=== PATIENT | male | born 1945 | race Caucasian/White ===

== ENCOUNTER → 2018-07-03 07:06 | Outpatient (CLI) | payer MEDICARE, OTHER, SELFPAY ==
--- NOTE | 2018-07-03 09:32 | STRESSREP ---
Stress Test Report Exercise myocardial perfusion stress test. 73-year-old man with a history of previous myocardial infarction angioplasty and stenting of the diagonal vessel and the right coronary artery. Stress protocol: Resting EKG demonstrates normal sinus rhythm with a rate of 61 bpm normal intervals and noted. Resting blood pressure is 124/82 mmHg. The patient exercised according to regular Alexis protocol for total duration of 9 minutes the maximum heart rate attained was 126 bpm which was 85% of maximum predicted heart rate the maximum workload was 10.1 metabolic equivalents. Patient maintained sinus rhythm throughout the recording. At rest there were no ST or T-wave changes noted suggest ischemia peak exercise upsloping ST changes only were noted would not be the criteria for ischemia. Resting blood pressure is 124/82 with a peak blood pressure 146/66 centimeters of mercury. Myocardial perfusion protocol. 11.9 mCi of technetium 99m sestamibi was injected at rest. The patient exercised according to regular Alexis protocol for total duration of 9 minutes attaining 85% of maximum predicted heart rate workload of 10.1 metabolic equivalents. At peak exercise 34.2 mCi of technetium 99m sestamibi was injected stress images were obtained stress and rest images were reconstructed and compared in the short axis vertical long and horizontal long axis. Gated images were also obtained Perfusion SPECT analysis: Review of the stress images demonstrate normal uptake of tracer noted in all areas of myocardium. The resting images similarly demonstrate normal uptake of tracer noted in all wrists myocardium. No areas of reversibility are noted suggest ischemia no previous infarct is noted. Gated SPECT analysis: The gated ejection fraction is 76%. Conclusion: Normal exercise myocardial perfusion stress test at a high workload. No clinical angina noted. Excellent functional capacity.
== END ==
PROVIDERS: Family Provider Family Medicine; PCP Family Medicine; Visit Provider Internal Medicine Cardiovascular Disease
DX: I25.10 Atherosclerotic heart disease of native coronary artery without angina pectoris (principal); Z95.5 Presence of coronary angioplasty implant and graft
CPT/HCPCS: 78452; 93017; A9500; A4216

== ENCOUNTER → 2018-08-23 21:29 | Outpatient (CLI) | payer MEDICARE, OTHER, SELFPAY | PROVIDERS: Family Provider Family Medicine; PCP Family Medicine; Referring Provider Family Medicine; Visit Provider Family Medicine | DX: R30.0 Dysuria (principal) | CPT/HCPCS: 87077; 87086; 87088; 87186 ==

== ENCOUNTER → 2018-10-04 17:05 | Outpatient (CLI) | payer MEDICARE, OTHER, SELFPAY ==
--- OUTSIDE RECORDS SUMMARY | 2018-11-29 16:29 | XMS RPT_ITS ---
:1945 Author Organization [facility] Care Team Providers Name Role Phone Delphine Fowler Attending Unavailable Kat, [place] Attending Unavailable Sean Aguilar Referring Unavailable Kat, George Attending Unavailable Kat, George Referring Unavailable Sean Aguilar Primary Care Unavailable Kat, [place] Attending Unavailable Kat, [place] Referring Unavailable Sean Aguilar Attending Unavailable Sean Aguilar Primary Care Unavailable Sean Aguilar Referring Unavailable Sean Aguilar Attending Unavailable Sean Aguilar Referring Unavailable Sean Aguilar Primary Care Unavailable Sean Aguilar Attending Unavailable Sean Aguilar Primary Care Unavailable PROBLEMS PROBLEMS DATE TYPE CONDITION / CODE ATTENDING STATUS SOURCE 10/11/2018 Unknown E03.9 - Sean Aguilar Active [facility] Hypothyroidism, Community unspecified / Hospital E03.9(ICD-10) Repository 10/11/2018 Unknown Z12.5 - Encounter for Sean Aguilar Active [facility] screening for Community malignant neoplasm of Hospital prostate / Repository Z12.5(ICD-10) 10/04/2018 Unknown N39.0 - Urinary tract Sean Aguilar Active [facility] infection, site not Community specified / Hospital N39.0(ICD-10) Repository 08/26/2018 Unknown R30.0 - Dysuria / Sean Aguilar Active [facility] R30.0(ICD-10) [facility] Repository 06/28/2018 Unknown E78.5 - Kat, George Active [facility] Hyperlipidemia, Community unspecified / Hospital E78.5(ICD-10) Repository 06/28/2018 Unknown Z95.5 - Presence of Kat, George Active [facility] coronary angioplasty Community implant and graft / Hospital Z95.5(ICD-10) Repository 06/28/2018 Unknown I25.10 - Kat, George Active [facility] Atherosclerotic heart [facility] disease of [facility] coronary artery Repository without angina pectoris / I25.10(ICD-10) PROCEDURES PROCEDURES No Procedure Records FoundRESULTS RESULTS THYROID STIM HORMONE Collected: 10/11/2018 Status: F Source: [place] (TSH) 10:[address] [facility] REPOSITORY TYPE CODE TESTS RESULT OUT OF RANGE REFERENCE UNITS LAB L501.9520 0.358-3.74 uIU/mL Normal TSH 1.63 Performed By: #### L501.9520, L501.9910 #### [facility] [address] [place], [address] PSA,TOTAL - ANNUAL Collected: 10/11/2018 Status: F Source: [place] SCREEN 10:[address] [facility] REPOSITORY TYPE CODE TESTS RESULT OUT OF REFERENCE UNITS RANGE LAB L501.9910 0.00-4.00 ng/mL High PSA,TOT 9.73 SCREEN Result Comment: This test was performed using the TPSA assay method for the [employer] chemistry system. Values obtained with different assay methods cannot be used interchangably. When changing PSA assays in the course of monitoring a patient, additional sequential testing should be carried out to confirm baseline values. Performed By: #### L501.9520, L501.9910 #### [facility] [address] [facility] [address] [place], [place], [address] Observed: 10/04/2018 Status: F Source: [place] CULTURE, URINE 3:[address] [facility] REPOSITORY Urine Culture ORGANISM 1: Escherichia coli [place] Count >100,000 Escherichia coli: REACTION Amoxacillin/Clavulanic Acid $ 4 S Ampicillin $ >=32 R Ampicillin/Sulbactam $ 16 I Cefazolin $ <=4 S Cefepime $ <=1 S Ceftriaxone $ <=1 S Ciprofloxacin $ >=4 R ESBL - Ertapenim $$$ <=0.5 S Gentamicin $ <=1 S Imipenem *NF <=0.25 S Levofloxacin $ >=8 R Nitrofurantoin $ <=16 S Piperacillin/Tazobactam $$ <=4 S Tobramycin $ <=1 S Trimethoprim/Sulfametho $ >=320 R (NF) indicates non-formulary drug at [facility]. Approval by Infectious Disease Specialist required before non-formulary drugs may be ordered and/or dispensed. Performed By: #### M100.0650 #### [facility] [address] [facility] [place], [place], [address] Observed: 08/23/2018 Status: F Source: [place] CULTURE, URINE 9:[address] [facility] REPOSITORY Urine Culture ORGANISM 1: Escherichia coli [place] Count >100,000 Escherichia coli: REACTION Amoxacillin/Clavulanic Acid $ 4 S Ampicillin $ >=32 R Ampicillin/Sulbactam $ 16 I Cefazolin $ <=4 S Cefepime $ <=1 S Ceftriaxone $ <=1 S Ciprofloxacin $ >=4 R ESBL - Ertapenim $$$ <=0.5 S Gentamicin $ <=1 S Imipenem *NF <=0.25 S Levofloxacin $ >=8 R Nitrofurantoin $ <=16 S Piperacillin/Tazobactam $$ <=4 S Tobramycin $ <=1 S Trimethoprim/Sulfametho $ >=320 R (NF) indicates non-formulary drug at [facility]. Approval by Infectious Disease Specialist required before non-formulary drugs may be ordered and/or dispensed. Performed By: #### M100.0650 #### [facility] [address] [place], [address] STRESS REPORT Observed: 07/03/2018 Status: F Source: [place] 9:[address] [facility] REPOSITORY [facility] [address] [place] [address] MR#: [id number] Acct: [id number] Name: URSZULA SALINAS Rep #: [id number] : 1945 73 From: George Stephens MD Primary Care: Sean Aguilar MD Status: REG CLI Ordering Dr: Xiomara: Ashley Cooper Stress Test Report Exercise myocardial perfusion stress test. 73-year-old man with a history of previous myocardial infarction angioplasty and stenting of the diagonal vessel and the right coronary artery. Stress protocol: Resting EKG demonstrates normal sinus rhythm with a rate of 61 bpm normal intervals and noted. Resting blood pressure is 124/82 mmHg. The patient exercised according to regular Alexis protocol for total duration of 9 minutes the maximum heart rate attained was 126 bpm which was 85% of maximum predicted heart rate the maximum workload was 10.1 metabolic equivalents. Patient maintained sinus rhythm throughout the recording. At rest there were no ST or T-wave changes noted suggest ischemia peak exercise upsloping ST changes only were noted would not be the criteria for ischemia. Resting blood pressure is 124/82 with a peak blood pressure 146/66 centimeters of mercury. Myocardial perfusion protocol. 11.9 mCi of technetium 99m sestamibi was injected at rest. The patient exercised according to regular Alexis protocol for total duration of 9 minutes attaining 85% of maximum predicted heart rate workload of 10.1 metabolic equivalents. At peak exercise 34.2 mCi of technetium 99m sestamibi was injected stress images were obtained stress and rest images were reconstructed and compared in the short axis vertical long and horizontal long axis. Gated images were also obtained Perfusion SPECT analysis: Review of the stress images demonstrate normal uptake of tracer noted in all areas of myocardium. The resting images similarly demonstrate normal uptake of tracer noted in all wrists myocardium. No areas of reversibility are noted suggest ischemia no previous infarct is noted. Gated SPECT analysis: The gated ejection fraction is 76%. Conclusion: Normal exercise myocardial perfusion stress test at a high workload. No clinical angina noted. Excellent functional capacity. 07/03/18934 <Electronically signed by George Stephens MD> Date George Stephens MD CC: George Stephens MD; Sean Aguilar MD Date Dictated: 07/03/18931 Date Transcribed: 07/03/18931 Language Teacher: [place] Signed CARDIOLOGY VISIT Observed: 06/28/2018 Status: F Source: [place] REPORT 11:[address] [facility] REPOSITORY [facility] [address] [place] [address] OFFICE VISIT Date of Service: 06/28/18 MR#: [id number] Acct: [id number] Name: URSZULA SALINAS Rep #: [id number] : 1945 Provider: George Stephens MD Age/Sex: 73/M Location: [facility] Status: Signed HPI HPI Chief Complaint: Follow up Details: URSZULA SALINAS, is a 73 M who presents to the office today for a follow-up visit. He is a gentleman with a history of coronary artery disease status post Angio plasty and stenting with a drug-eluting stent to the diagonal vessel. The circumflex artery no significant disease, the right coronary artery had a 95% stenosis and also had a drug-eluting stent placed. He is done well he has been engaged in a structure house activity for which she is lost some weight. He has had no neck arm or jaw discomfort suggest angina no dizziness or diaphoresis no near syncope or syncope. His blood work recently noted that he was getting mildly hypothyroid. His physical exam today demonstrates clear lung herman regular rate and rhythm and no pedal edema his blood pressure is under excellent control. Intake Vital Signs06/28/18 Height 5 ft 5 in 06/28/18 Weight: 196 lb 06/28/18 Body Mass Index (BMI) 32.5 06/28/18 Blood Pressure 138/78 06/28/18 Blood Pressure Location Lt brachial Intake Visit Reasons: 6 M FU (9 mo we r/s from -22) Skeiner Required: No Accompanied by: none Is patient in pain?: No Allergies No Known Allergies Allergy (Verified 06/28/18 11:17) Medications atorvastatin 80 mg tablet 80 mg PO QHS #90 tab 03/11/18 [Rx Confirmed 06/28/18] clopidogrel 75 mg tablet 75 mg PO QDAY #90 tab 03/11/18 [Rx Confirmed 06/28/18] lisinopril 2.5 mg tablet 2.5 mg PO QDAY #90 tab 03/11/18 [Rx Confirmed 06/28/18] metoprolol succinate ER 25 mg tablet,extended release 24 hr 25 mg PO QDAY #90 tab 03/11/18 [Rx Confirmed 06/28/18] aspirin 81 mg tablet,delayed release 81 mg PO DAILY 06/28/18 [History Confirmed 06/28/18] levothyroxine 50 mcg tablet 50 mcg PO DAILY #90 tab 06/28/18 [Rx Confirmed 06/28/18] PFS Medical History Atherosclerosis of coronary artery of morongo heart without angina pectoris (Chronic) HLD (hyperlipidemia) (Chronic) Surgical History History of coronary artery stent placement (Resolved) History of herniorrhaphy (Resolved) Social History Smoking Status: Never smoker ROS Const Const: Negative for fatigue, weakness, night sweats, excessive sweating, frequent falls, headache(s) or daytime sleepiness Eyes Eyes: Negative for loss of peripheral vision, transient loss of vision, blind spots, double vision or blurry vision ENT ENT: Negative for headache(s), dizziness, balance problems, Nosebleed/epistaxis, tongue swelling or lip swelling Cardio Chest Pain: No Palpitations: No Edema: None Muscle aches with walking: None Resp Respiratory: Negative for SOB at rest, SOB orthopnea\SOB lying down, Cough, paroxysmal nocturnal dyspnea or SOB with activity GI GI: Negative nausea, vomiting, heartburn, black,tarry stools or bright, red blood in stools : Negative for hematuria Musc Musc: Negative for balance problems, muscle aches/ myalgia, muscle weakness or joint pain Skin Skin: Negative non-healing lesions, unusual bruising or rash Neuro Neuro: Negative for weakness, frequent falls, headache(s), double vision, dizziness, lightheadedness, orthostatic symptoms, blurry vision or lack of coordination Rubén Hematologic/Lymphatic: Negative for easy bruising or easy bleeding Endo Endo: Negative for fatigue, excessive sweating, cold intolerance, heat intolerance, increased thirst/drinking or hair loss Psych Psych: Negative for anxiety or depression Allergy Allergy/Immunology: Negative for throat swelling, Negative for tongue swelling, Negative for hives, Negative for rash, Negative for lip swelling Cardiology Exam Const Appearance: cooperative, healthy appearing, well developed, well groomed and no acute distress Nutritional Appearance: well nourished and average body habitus Orientation: alert, awake and oriented x3 Head Head: normal to inspection, normocephalic and atraumatic Ears: hearing grossly normal bilaterally and external ears normal Nose: external nose normal, nasal mucous membranes and turbinates normal, nares normal, septum normal, no nasal discharge Face and Sinus: face symmetric Mouth: oral mucosae normal, tongue normal, oropharynx normal and moist mucous membranes Teeth and gingiva: dentition normal Throat: posterior oropharynx normal, tonsils normal and uvula midline Eyes General: appearance normal, both eyes and all related structures Eyelids: eyelids normal Conjunctivae: conjunctivae normal Pupils: PERRL, normal by confrontation and accommodation normal EOM: EOM intact bilaterally Neck Neck: normal visual inspection, trachea midline and no JVD JVD: +5 Carotids: normal carotid upstroke and bounding pulses Chest Chest inspection: normal inspection of the chest, symmetric chest movement and normal respiratory effort Auscultation: Bilateral: Clear to Auscultation Cardio Palpation: normal PMI Rate: regular rate Rhythm: regular rhythm Heart sounds: S1 normal, S2 normal and normal, physiologic split S2; negative rub, gallop or murmur GI GI: normal to inspection, soft, no hepatosplenomegaly and bowel sounds present Neuro General: alert, awake, oriented x3, no focal sensory deficit, gait normal and moves all extremities Skin Skin: no rashes or lesions noted Extremities Pulses: Normal: Right Femoral Pulse, Left Femoral Pulse, Right Dorsalis Pedis Pulse, Left Dorsalis Pedis Pulse, Right Posterior Tibial Pulse, Left Posterior Tibial Pulse, Right Radial Pulse, Left Radial Pulse Lower Extremity Edema: None: Bilateral Musculoskel Musculoskeletal: No joint tenderness Psych Psychological: normal affect Assessment AND Plan 1. History of coronary artery stent placement Z95.5 QTM-XAJ-Sng-Distal RCA, POBA-Right PDA and GPZ-Agtrdt-Thru-D1 04/05/2015 Plan He is status post angioplasty and stenting of the mid right escamilla artery, plain old balloon angioplasty to the posterior descending artery, and drug-eluting stents to the ostium of the first diagonal vessel. He has been doing well thus far with no symptomatology but it to be prudent to obtain an exercise myocardial perfusion stress test to assess for any occult ischemia. Orders Orders: 2. HLD (hyperlipidemia) E78.5 Plan He does have a history of hyperlipidemia. He recently had a lipid profile obtained which demonstrated a total cholesterol 176, HDL of 55 and LDL of 88. His triglycerides were mildly elevated at 167. In addition he was noted to have a mildly elevated TSH. I have taken the liberty of starting him on 50 mcg of levothyroxine. Repeat lipid profile will be obtained in 3 months. Thank you for allowing me to participate in the care of your patient. Please don't hesitate to call if any issues arise Orders Orders: Plan Detail Other Medications New: Follow Up 6 Months (firer kiln) Coding Level of Care Code Off vis,est,level 3 Diagnoses History of coronary artery stent placement Z95.5 HLD (hyperlipidemia) E78.5 Coding Level of Care Code Off vis,est,level 3 Diagnoses History of coronary artery stent placement Z95.5 HLD (hyperlipidemia) E78.5 06/28/18 1145 <Electronically signed by George Stephens MD> Date George Stephens MD Cosigner Signature: Date (if applicable) CC: Sean Aguilar MD 12 LEAD EKG PERFORMED Observed: 06/28/2018 Status: F Source: [place] BY ROBIN 11:[address] [facility] REPOSITORY [facility] [address] [place] [address] 12 Lead EKG performed by ROBIN 08/1137 MR#: [id number] Acct: [id number] Name: URSZULA SALINAS Rep #: [id number] : 1945 73 From: George Stephens MD Attending Dr: George Stephens MD Status: DEP AMB Ordering Dr: George Stephens MD Date: 06/28/18 [place] [facility] [place] C [place] [facility] Lead EKG performed by [facility] Sinus Bradycardia WITHIN NORMAL LIMITS 07/01/18 0902 <Electronically signed by George Stephens MD> Date George Stephens MD CC: Sean Aguilar MD Date Dictated: 06/28/181137 Date Transcribed: 06/28/181137 Language Teacher: [place] Signed ALLERGIES ALLERGIES DATE TYPE / CODE NAME / CODE REACTION SEVERITY SOURCE 06/28/2018 Drug No Known Unknown [facility] Allergy/4160 Allergies/F00 Hospital 40047(SNOMED 4289283(RXNOR Repository CT) M) ENCOUNTERS ENCOUNTERS ADMIT/DISCHARGE ACCOUNT ADMITTING ENCOUNTER LOCATION SOURCE NUMBER CLASS 10/11/2018 [id number] Ambulatory [facility] ing:MFPLAB Repository 10/04/2018 [id number] Ambulatory [facility] ing:LABSPEC Repository 08/23/2018 [id number] Ambulatory [facility] ing:LABSPEC Repository 07/03/2018 [id number] Ambulatory [facility] ing:[facility]S Repository 07/03/2018 [id number] Ambulatory [facility]:W [facility] 0 [facility] Repository 06/28/2018/ [id number] Ambulatory BMSBuilding:B [facility] [address] [facility] Repository 06/24/2018 [id number] Ambulatory BMSBuilding:B [facility] [address] [facility] Repository PAYERS PAYERS ENCOUNTER GUARANTOR PAYER SUBSCRIBER SOURCE 10/11/2018 URSZULA Andino Primary URSZULA L [facility] [id number] Insurance:MEDICARE [place]APIRODOB: Community [place] A [facility]lic [id number] [address]Htq: Number: Repository [id number] (HP) Date:2018-10-11 10/11/2018 Secondary URSZULA L [facility] Insurance:AARPPolicy SHAPIRODOB: Community Number: [id number] Hospital [id number] Repository Date:2819-57-[address], [place] [address]NS: 10/11/2018 Tertiary NOT GIVENUNK [place] Insurance:SELF PAY [facility] Number: Effective Repository Date:2018-10-11 10/04/2018 URSZULA L Primary URS[facility]ULA L [facility] [id number] Insurance:MEDICARE SHAPIRODOB: Community [place], PART A [facility] [id number] [address]Xbh: Number: Repository [id number] (HP) Date:2018-10-04 10/04/2018 Secondary URSZULA L [place] Insurance:AARPPolicy SHAPIRODOB: Community Number: [id number] Hospital [id number] Repository Date:0356-25-83BX [facility] [address], [place] [address]CJ: 10/04/2018 Tertiary NOT GIVENUNK [facility] Insurance:SELF PAY [facility] Number: Effective Repository Date:2018-10-04 08/23/2018 URSZULA L Primary URSZULA L [facility] [id number] Insurance:MEDICARE SHAPIRODOB: Community [place], PART A [facility] [id number] [facility] [address]Qgb: Number: Repository [id number] (HP) Date:2018-08-23 08/23/2018 Secondary URSZULA L [place] Insurance:AARPPolicy SHAPIRODOB: Community Number: [id number] Hospital [id number] Repository Date:7392-74-74LS [facility] [address], [place] [address]MR: 08/23/2018 Tertiary NOT GIVENUNK [place] Insurance:SELF PAY [facility] Number: Effective Repository Date:2018-08-23 07/03/2018 URSZULA L Primary URSZULA Santos [id number] Insurance:MEDICARE SHAPIRODOB: Community [place] A olic [id number] [address]Vzx: Number: Repository [id number] (HP) Date:2018-06-28 07/03/2018 Secondary URSZULA L [place] Insurance:AARPPolicy SHAPIRODOB: Community Number: [id number] Hospital [id number] Repository Date:1761-52-45VQ [facility] [place], [place] [address]XS: 07/03/2018 Tertiary NOT GIVENUNK [place] Insurance:SELF PAY [facility] Number: Effective Repository Date:2018-06-28 07/03/2018 URSZULA L Primary URSZULA [place] [id number] Insurance:MEDICARE SHAPIRODOB: Community [place], PART A [facility] [id number] [facility] [address]Uiw: Number: Repository [id number] (HP) Date:2018-06-28 07/03/2018 Secondary URSZULA Andino [facility] Insurance:AARPPolicy SHAPIRODOB: Community Number: [id number] Hospital [id number] Repository Date:4193-00-65DU [facility] [place], [place] [address]YC: 07/03/2018 Tertiary NOT GIVENUNK [facility] Insurance:SELF PAY [facility] Number: Effective Repository Date:2018-07-03 06/28/2018 URSZULA L Primary URSZULA [place] [id number] Insurance:MEDICARE SHAPIRODOB: Community [place], PART A [facility] [id number] Hospital [place] [address]Hbi: Number: Repository [id number] (HP) Date:2017-10-15 06/28/2018 Secondary URSZULA L [facility] Insurance:AARPPolicy SHAPIRODOB: Community Number: [id number] Hospital [id number] Repository Date:2704-83-10[address], [place] [address]ZV: 06/28/2018 Tertiary NOT GIVENUNK [facility] Insurance:SELF PAY [facility] Number: Effective Repository Date:2018-03-19 06/24/2018 URSZULA Thu Primary NOT GIVENUNK [facility] [id number] Insurance:SELF PAY [facility] [address]Byn: Number: Effective Repository Date:2018-06-24 ()
== END ==
PROVIDERS: Family Provider Family Medicine; PCP Family Medicine; Referring Provider Family Medicine; Visit Provider Family Medicine
DX: N39.0 Urinary tract infection, site not specified (principal)
CPT/HCPCS: 87077; 87086; 87088; 87186

== ENCOUNTER → 2018-10-11 10:13 | Outpatient (CLI) | payer MEDICARE, OTHER, SELFPAY ==
[2018-06-28 11:16] VITALS: BMI 32.5
[2018-10-11 12:36] LABS: PSA,Total - Annual Screen 9.73 ng/mL (0.00-4.00); Thyroid Stim Hormone (TSH) 1.63 uIU/mL (0.358-3.74)
== END ==
PROVIDERS: Family Provider Family Medicine; PCP Family Medicine; Visit Provider Family Medicine
DX: E03.9 Hypothyroidism, unspecified (principal); Z12.5 Encounter for screening for malignant neoplasm of prostate
CPT/HCPCS: 36415; 84153; 84443; G0103

== ENCOUNTER → 2020-05-11 11:15 | Outpatient (CLI) | payer MEDICARE, OTHER, SELFPAY ==
[2020-05-11 10:30] VITALS: BMI 31.6
[2020-05-11 14:10] LABS: AST(SGOT) 24 U/L (15-37); Alanine Aminotransfer ALT/SGPT 28 U/L (16-61); Albumin, Serum 3.8 g/dL (3.2-5.0); Alkaline Phosphatase 66 U/L (45-117); Cholesterol 153 mg/dL (200); High Density Lipoprotein 53 mg/dL; PSA,Total- Diagnostic 8.67 ng/mL (0.0-4.0); Protein, Total 6.8 g/dL (6.4-8.2); Triglycerides 163 mg/dL; Very Low Density Lipoprotein 33 mg/dL (5-40)
== END ==
PROVIDERS: Referring Provider Internal Medicine Cardiovascular Disease; Visit Provider Internal Medicine Cardiovascular Disease
DX: I25.10 Atherosclerotic heart disease of native coronary artery without angina pectoris (principal); E78.5 Hyperlipidemia, unspecified
CPT/HCPCS: 36415; 80061; 80076; 84153

== ENCOUNTER → 2020-07-14 | Outpatient (CLI) | payer MEDICARE, OTHER, SELFPAY ==
[2020-05-11 10:30] VITALS: BMI 31.6
== END | disposition home or self-care (01) ==
PROVIDERS: Visit Provider Family Medicine
DX: N39.0 Urinary tract infection, site not specified (principal)
CPT/HCPCS: 87077; 87086; 87088; 87186

== ENCOUNTER → 2020-08-16 12:37 | Outpatient (CLI) | payer MEDICARE, OTHER, SELFPAY ==
[2020-05-11 10:30] VITALS: BMI 31.6
[2020-08-16 16:03] LABS: Anion Gap 5 (5-15); BUN 23 mg/dL (7-18); BUN/Creat Ratio 22.3 RATIO (10-20); Calcium,Total 9.3 mg/dL (8.5-10.1); Chloride 108 mmol/L (98-107); Creatinine, Serum 1.03 mg/dL (0.70-1.30); EST Glomerular Filtration Rate 75 mL/min (>60); Est Glom Filt Rate - Afr Amer 91 mL/min (>60); Glucose 96 mg/dL (74-106); Sodium Level 141 mmol/L (136-145)
== END ==
PROVIDERS: Referring Provider Nurse Practitioner Adult Health; Visit Provider Nurse Practitioner Adult Health
DX: N39.0 Urinary tract infection, site not specified (principal); R35.0 Frequency of micturition
CPT/HCPCS: 80048; 84153; 87077; 87086; 87088; 87186

== ENCOUNTER → 2020-09-10 08:32 | Outpatient (CLI) | payer MEDICARE, OTHER, SELFPAY ==
[2020-05-11 10:30] VITALS: BMI 31.6
[2020-09-10 10:34] LABS: Cholesterol 172 mg/dL (200); High Density Lipoprotein 55 mg/dL; PSA,Total- Diagnostic 8.18 ng/mL (0.0-4.0); Thyroid Stim Hormone (TSH) 2.78 uIU/mL (0.358-3.74); Triglycerides 176 mg/dL; Very Low Density Lipoprotein 35 mg/dL (5-40)
== END ==
PROVIDERS: PCP Family Medicine; Referring Provider Nurse Practitioner Adult Health; Visit Provider Nurse Practitioner Adult Health
DX: R97.20 Elevated prostate specific antigen [PSA] (principal); E03.9 Hypothyroidism, unspecified; E78.00 Pure hypercholesterolemia, unspecified
CPT/HCPCS: 36415; 80061; 84153; 84443

== ENCOUNTER → 2021-05-03 08:28 | Outpatient (CLI) | payer MEDICARE, OTHER, SELFPAY ==
[2021-04-06 11:07] VITALS: BMI 34.7
--- NOTE | 2021-05-03 08:41 | ECHOCS_ITS ---
Reason For Study: HTN Procedure This was a 2D Doppler, Color Flow transthoracic echocardiogram. The study was technically difficult. Contrast injection was performed. Exam performed in department. Left Ventricle Normal left ventricle. Mild concentric left ventricular hypertrophy. Left ventricular systolic function is normal. The estimated ejection fraction is 65 %. Stage 1 diastolic dysfunction. No regional wall motion abnormalities noted. Right Ventricle Normal RV size. Normal systolic function. Atria Normal left atrium. Normal right atrium. Mitral Valve Normal mitral valve. Trivial eccentric mitral valve insufficiency. Tricuspid Valve Normal tricuspid valve. Aortic Valve The aortic valve is not well visualized. Mild (1+) aortic valve insufficiency. Pulmonic Valve Normal pulmonic valve. Great Vessels Normal aortic root. The pulmonary artery is normal size. Normal inferior vena cava. Pericardium/Pleural No pericardial effusion. Medication 22 gauge I.V. with prn adaptor inserted into left arm. Diluted definity 2ml given slow IV push to enhance endocardial definition. MMode/2D Measurements & Calculations LVIDd: 3.9 cm IVSd: 1.2 cm LA dimension: 3.8 cm LVIDs: 2.3 cm LVPWd: 1.2 cm FS: 42.8 % LAV(MOD-bp): 39.7 ml LA A4 area: 18.2 cm2 LAV(MOD-bp) Indexed: 20.3 ml/m2 LAV(MOD-sp2): 31.7 ml LAV(MOD-sp4): 46.2 ml Time Measurements MV dec time: 0.26 sec Doppler Measurements & Calculations MV E max elieser: 69.4 cm/sec Lat Peak E' Elieser: 9.9 cm/sec Med Peak E' Elieser: 7.1 cm/sec MV A max elieser: 108.1 cm/sec E/E' lat: 7.0 E/E' med: 9.8 MV E/A: 0.64 MV V2 max: 107.5 cm/sec MV P1/2t max elieser: 65.8 cm/sec Ao V2 max: 154.4 cm/sec MV max P.6 mmHg MV P1/2t: 111.7 msec Ao max P.5 mmHg MV V2 mean: 41.8 cm/sec MV dec slope: 172.6 cm/sec2 MV mean P.92 mmHg MV V2 VTI: 34.3 cm MVA(P1/2t): 2.0 cm2 AI max elieser: 443.5 cm/sec LV V1 max: 147.7 cm/sec PA V2 max: 58.8 cm/sec AI max P.7 mmHg LV V1 max P.7 mmHg AI dec slope: 132.0 cm/sec2 AI P1/2t: 983.9 msec ECHO/Echo Complete W/ Contrast Interpretation Summary Normal left ventricle. Left ventricular systolic function is normal. The estimated ejection fraction is 65 %. Stage 1 diastolic dysfunction. Mild concentric left ventricular hypertrophy. Contrast injection was performed. Ordering Physician: George Stephens Referring Physician: Sean Herman Performed By: Jonah Nair RCS
[2021-05-03 10:05] LABS: AST(SGOT) 26 U/L (15-37); Alanine Aminotransfer ALT/SGPT 30 U/L (16-61); Alkaline Phosphatase 73 U/L (45-117); Cholesterol 154 mg/dL (200); Globulin 2.8 g/dL (2.2-4.2); High Density Lipoprotein 49 mg/dL; Protein, Total 6.8 g/dL (6.4-8.2); Triglycerides 144 mg/dL; Very Low Density Lipoprotein 29 mg/dL (5-40)
== END ==
PROVIDERS: PCP Family Medicine; Referring Provider Internal Medicine Cardiovascular Disease; Visit Provider Internal Medicine Cardiovascular Disease
DX: I25.10 Atherosclerotic heart disease of native coronary artery without angina pectoris (principal); I10 Essential (primary) hypertension; E78.5 Hyperlipidemia, unspecified; I25.2 Old myocardial infarction; Z95.5 Presence of coronary angioplasty implant and graft
CPT/HCPCS: 36415; 80061; 80076; 93306; Q9957; A4216; C8929; J3490

== ENCOUNTER → 2021-05-12 | Outpatient (CLI) | payer MEDICARE, OTHER, SELFPAY ==
[2021-04-06 11:07] VITALS: BMI 34.7
== END | disposition home or self-care (01) ==
LOC: LABSPEC 16:57
PROVIDERS: PCP Family Medicine; Referring Provider Nurse Practitioner Adult Health; Visit Provider Nurse Practitioner Adult Health
DX: N39.0 Urinary tract infection, site not specified (principal)
CPT/HCPCS: 87077; 87086; 87088; 87186

== ENCOUNTER → 2021-06-16 13:23 | Outpatient (CLI) | payer MEDICARE, OTHER, SELFPAY ==
[2021-04-06 11:07] VITALS: BMI 34.7
--- NOTE | 2021-06-16 13:27 | CT_ITS ---
STUDY: CT ABDOMEN AND PELVIS WITHOUT CONTRAST REASON FOR EXAM: Male, 76 years old. UTI RADIATION DOSAGE (If Supplied By Facility): CTDIvol = ( 18.75 ) mGy, DLP = ( 937.06 ) mGycm TECHNIQUE: Transaxial images were obtained from the dome of the diaphragm to the symphysis pubis without oral contrast, and without intravenous contrast. Sagittal and coronal images were reconstructed. Individualized dose optimization techniques were used for this CT. COMPARISON: None. FINDINGS: Mild degree of increased markings in the anterior aspect of the right lower lobe suggestive of scarring and/or atelectasis. Coronary artery calcification. Normal liver. Normal gallbladder and extrahepatic biliary system. Normal spleen. Normal pancreas. Normal bilateral adrenal glands. Normal right kidney. There is a 12.3 cm x 8.2 cm x 9.5 cm cyst in the upper and midportion of the left kidney. There is a small hiatal hernia. Normal small intestine. There are multiple colonic diverticula consistent with diverticulosis. The appendix is visualized and appears normal. There is diffuse atherosclerotic calcification of the abdominal aorta and its major visceral branches, without a demonstrated aneurysm. Normal inferior vena cava. Normal retroperitoneum. Normal urinary bladder. The prostate is enlarged. It measures 5.4 cm x 5.5 cm. This causes indentation at the bladder base. There are prostatic calcifications. Prior right inguinal hernia repair with mesh. There are diffuse degenerative changes of the visualized lumbar spine. Minimal anterior listhesis of L4 on L5 without spondylolysis. CT/Abdomen/Pelvis without Cont IMPRESSION: 12.3 cm x 8.2 cm x 9.5 cm left renal cyst. Prostatic enlargement with indentation at the bladder base. Electronically Signed: Taras Galeana MD at 19:52 EDT , Service support ,
== END ==
PROVIDERS: PCP Family Medicine; Referring Provider Nurse Practitioner Adult Health; Visit Provider Nurse Practitioner Adult Health
DX: N39.0 Urinary tract infection, site not specified (principal)
CPT/HCPCS: 74176

== ENCOUNTER → 2021-08-02 08:19 | Outpatient (CLI) | payer MEDICARE, OTHER, SELFPAY | PROVIDERS: Referring Provider Urology; Visit Provider Urology | DX: R97.20 Elevated prostate specific antigen [PSA] (principal) | CPT/HCPCS: 36415; 84153 ==

== ENCOUNTER → 2021-09-23 11:14 | Outpatient (CLI) | payer MEDICARE, OTHER, SELFPAY ==
[2021-09-23 13:40] LABS: AST(SGOT) 25 U/L (15-37); Alanine Aminotransfer ALT/SGPT 31 U/L (16-61); Albumin, Serum 3.6 g/dL (3.2-5.0); Alkaline Phosphatase 65 U/L (45-117); Bilirubin, Direct 0.19 mg/dL (0.00-0.30); Cholesterol 137 mg/dL (200); Globulin 3.1 g/dL (2.2-4.2); High Density Lipoprotein 50 mg/dL; Protein, Total 6.7 g/dL (6.4-8.2); Thyroid Stim Hormone (TSH) 0.92 uIU/mL (0.358-3.74); Triglycerides 104 mg/dL; Very Low Density Lipoprotein 21 mg/dL (5-40)
== END ==
PROVIDERS: Referring Provider Internal Medicine Cardiovascular Disease; Visit Provider Internal Medicine Cardiovascular Disease
DX: E78.5 Hyperlipidemia, unspecified (principal)
CPT/HCPCS: 36415; 80061; 80076; 84443

== ENCOUNTER → 2021-10-03 06:59 | Outpatient (CLI) | payer MEDICARE, OTHER, SELFPAY ==
--- NOTE | 2021-10-03 09:53 | STRESSREP ---
Stress Test Report Exercise myocardial perfusion stress test. 76-year-old man with a history of coronary artery disease. Medications: Aspirin, levothyroxine, atorvastatin, Plavix, losartan, metoprolol. Stress protocol: Resting EKG demonstrates sinus bradycardia with a rate of 59 bpm. Resting blood pressure is 120/82 mmHg. The patient exercised according to the regular Alexis protocol for total duration of 7 minutes. The patient completed 1 minute into stage III of the Alexis protocol. The maximum heart rate attained was 125 bpm which was 86% of max impact at heart rate the maximum workload was 10.1 metabolic equivalents. The patient maintained sinus rhythm throughout the recording with occasional premature ventricular complexes noted. At rest there were no ST or T wave changes noted to suggest ischemia. At peak exercise upsloping ST changes only were noted with did not meet the criteria for ischemia. No clinical angina was noted the test was terminated due to shortness of breath. The peak blood pressure was 170/80 mmHg with a rate-pressure product was 15,680. Myocardial perfusion protocol. 11.8 mCi of technetium 99m sestamibi was injected at rest. The patient exercised according to regular Alexis protocol for 7 minutes and at peak exercise 34.3 mCi of technetium 99m sestamibi was injected stress images were obtained stress and rest images were reconstructed and compared in the short axis vertical long and horizontal long axis. Gated images were also obtained. Perfusion SPECT analysis: Review of the stress images demonstrate normal uptake of tracer noted in all areas of the myocardium. There is mild diaphragmatic and GI attenuation artifact noted. The resting images demonstrate a similar pattern with mild diaphragmatic and GI attenuation artifact. No areas of reversibility are noted to suggest ischemia no previous infarct is noted. Gated SPECT analysis: The gated ejection fraction is 72%. Conclusion: Normal exercise myocardial perfusion stress test at a high workload. Good functional capacity. No ischemia or angina noted.
== END ==
PROVIDERS: Referring Provider Internal Medicine Cardiovascular Disease; Visit Provider Internal Medicine Cardiovascular Disease
DX: I25.10 Atherosclerotic heart disease of native coronary artery without angina pectoris (principal); Z95.5 Presence of coronary angioplasty implant and graft; Z87.440 Personal history of urinary (tract) infections; Z79.899 Other long term (current) drug therapy
CPT/HCPCS: 78452; 87086; 87088; 93017; A9500; A4216

== ENCOUNTER → 2022-05-03 | Outpatient (CLI) | payer MEDICARE, OTHER, SELFPAY ==
[2022-05-03 09:09] LABS: AST(SGOT) 20 U/L (15-37); Alanine Aminotransfer ALT/SGPT 25 U/L (16-61); Albumin, Serum 3.5 g/dL (3.2-5.0); Alkaline Phosphatase 77 U/L (45-117); Bilirubin, Direct 0.13 mg/dL (0.00-0.30); Cholesterol 154 mg/dL (200); Globulin 3.2 g/dL (2.2-4.2); High Density Lipoprotein 44 mg/dL; Protein, Total 6.7 g/dL (6.4-8.2); Triglycerides 195 mg/dL; Very Low Density Lipoprotein 39 mg/dL (5-40)
[2022-05-03 09:13] LABS: PSA,Total- Diagnostic 5.51 ng/mL (0.0-4.0)
== END | disposition home or self-care (01) ==
LOC: LAB 07:56
PROVIDERS: PCP Internal Medicine; Visit Provider Internal Medicine Cardiovascular Disease
DX: R97.20 Elevated prostate specific antigen [PSA] (principal); E78.00 Pure hypercholesterolemia, unspecified; E78.5 Hyperlipidemia, unspecified
CPT/HCPCS: 36415; 80061; 80076; 84153

== ENCOUNTER → 2022-10-02 | Outpatient (CLI) | payer MEDICARE, OTHER, SELFPAY ==
[2022-10-02 09:17] LABS: AST(SGOT) 18 U/L (15-37); Alanine Aminotransfer ALT/SGPT 25 U/L (16-61); Albumin, Serum 3.2 g/dL (3.2-5.0); Alkaline Phosphatase 68 U/L (45-117); Bilirubin, Direct 0.16 mg/dL (0.00-0.30); Cholesterol 150 mg/dL (200); Globulin 2.6 g/dL (2.2-4.2); High Density Lipoprotein 52 mg/dL; PSA,Total- Diagnostic 5.83 ng/mL (0.0-4.0); Protein, Total 5.8 g/dL (6.4-8.2); Triglycerides 177 mg/dL; Very Low Density Lipoprotein 35 mg/dL (5-40)
[2022-10-02 09:25] LABS: Free T3 1.9 pg/mL (2.18-3.98); T4 Free Direct 1.01 ng/dL (0.76-1.46); Thyroid Stim Hormone (TSH) 2.49 uIU/mL (0.358-3.74)
== END | disposition home or self-care (01) ==
LOC: LAB 08:04
PROVIDERS: PCP Internal Medicine; Referring Provider Internal Medicine Cardiovascular Disease; Visit Provider Internal Medicine Cardiovascular Disease
DX: E03.9 Hypothyroidism, unspecified (principal); R97.20 Elevated prostate specific antigen [PSA]; E78.00 Pure hypercholesterolemia, unspecified
CPT/HCPCS: 36415; 80061; 80076; 84153; 84439; 84443; 84481

== ENCOUNTER 2022-10-05 13:00 | Outpatient (RCR) | payer MEDICARE, OTHER, SELFPAY ==
--- NOTE | 2022-09-04 15:44 | HP.PTEVAL_ITS ---
Patient's Visit Information URSZULA PERERA is a 77 year old M referred to Physical Therapy by Dr. Andrew Simmons MD with a diagnosis of sp reverse arthroplasty. Date of Evaluation: 09/04/22 Physical Therapist: Vinicio Wells PT, GLORIA, SCS, CSCS - Visit Plan Frequency: 2x /Week Duration: 6 Weeks - Subjective Mr. Perera is a pleasant 77 yo who was referred to our care following a left reverse shoulder procedure on Aug 28. He states that he has had shoulder pain for about 5-6 years. His main hobby at this point is photography and he would love to be able to take photos in 6-8 weeks. He is scheduled to go to [facility]. on Oct 07 and a planned trip to [facility]. If possible he would like to continue his therapy in [facility]. - Pain Left Shoulder Pain Intensity (Out of 10): 2 Pain Intensity Range: 0, 5 Comment: Manages with Tylenol. - Objective Mr. Perera presents in a sling today his incision is healing well with no seepage or drainage. He does have quite a bit of swelling distally at his elbow, bicep and chest area. Today I was able to move him passively to 90 abduction, 120 flexion and 5 ext. rotation which was painful for him. 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 His sensation was intact over his deltoid. - Balance/Special Test Scores Quick DASH Score: 63.6350 - Goals Goal 1:: Yon and his janak return demo of HEP correctly. Goal Time Frame: 1 Week Goal 2:: Improve ROm by 10% Goal Time Frame: 2-4 Weeks Goal 3:: Begin strengthen when appropriate Goal Time Frame: 4-6 Weeks - Rehabilitation Potential Physical Therapy Diagnosis: same Rehabilitation Potential: Good - Anticipated Interventions Patient/Client Instruction: Educate patient on: Condition, Plan of Care For the Purpose of:: To decrease pain, To increase ROM, To assume or resume ADL's Therapeutic Exercise to Include: Strength training, Flexibilty training, Passive ROM For the Purpose of:: To decrease pain, To increase ROM, To assume or resume ADL's Manual Therapy Techniques to Include: Massage, Passive ROM, Soft tissue mobilization For the Purpose of:: To decrease pain, To increase ROM, To assume or resume ADL's TENS: Yes - Decrease pain For the Purpose of:: To decrease pain, To increase ROM, To assume or resume ADL's Thank you for the opportunity to evaluate your patient. For Medicare and Medicare HMO plans, please review the plan of care and approve it. It will need to be FAXED BACK to us at [phone] for Medicare purposes. For Medicare only, by signing this I certify the plan of care. Please let me know if there are questions or concerns regarding this plan of care. Physician Signature: Date:
== END 2022-10-05 19:00 | disposition home or self-care (01) ==
LOC: PT 13:00
PROVIDERS: PCP Internal Medicine; Referring Provider Orthopaedic Surgery; Visit Provider Orthopaedic Surgery
DX: M19.012 Primary osteoarthritis, left shoulder (principal); Z96.612 Presence of left artificial shoulder joint; E03.9 Hypothyroidism, unspecified; R97.20 Elevated prostate specific antigen [PSA]; E78.00 Pure hypercholesterolemia, unspecified
CPT/HCPCS: 36415; 80061; 80076; 84153; 84439; 84443; 84481; 97014; 97110; 97140; 97161; G0283

== ENCOUNTER → 2023-04-23 | Outpatient (CLI) | payer MEDICARE, OTHER, SELFPAY ==
[2023-04-23 09:14] LABS: PSA,Total - Annual Screen 5.31 ng/mL (0.00-4.00); T4 Free Direct 0.97 ng/dL (0.76-1.46); Thyroid Stim Hormone (TSH) 4.37 uIU/mL (0.358-3.74)
[2023-04-23 09:20] LABS: AST(SGOT) 24 U/L (15-37); Alanine Aminotransfer ALT/SGPT 27 U/L (16-61); Albumin, Serum 3.6 g/dL (3.2-5.0); Alkaline Phosphatase 70 U/L (45-117); Bilirubin, Direct 0.19 mg/dL (0.00-0.30); Cholesterol 128 mg/dL (200); Globulin 2.9 g/dL (2.2-4.2); High Density Lipoprotein 44 mg/dL; Protein, Total 6.5 g/dL (6.4-8.2); Triglycerides 195 mg/dL; Very Low Density Lipoprotein 39 mg/dL (5-40)
== END | disposition home or self-care (01) ==
PROVIDERS: Internal Medicine Cardiovascular Disease; PCP Internal Medicine; Referring Provider Internal Medicine; Visit Provider Internal Medicine
DX: Z12.5 Encounter for screening for malignant neoplasm of prostate (principal); E03.9 Hypothyroidism, unspecified; E78.00 Pure hypercholesterolemia, unspecified
CPT/HCPCS: 80061; 80076; 84153; 84439; 84443; 84481; G0103

== ENCOUNTER 2023-05-02 15:30 | Emergency (ER) | payer MEDICARE, OTHER, SELFPAY ==
[2023-05-02 15:32] VITALS: BP 181/92; PULSE 59; RESP 20; TEMP 36.6; O2SAT 100; BMI 37.0
--- NOTE | 2023-05-02 15:40 | VDLE_ITS ---
Reason For Study: Right leg swelling RIGHT GSV is normal. CFV is compressible, spontaneous, phasic, competent and demonstrates normal augmentation. FV is compressible, spontaneous, phasic, competent and demonstrates normal augmentation. POP V is compressible, spontaneous, phasic, competent and demonstrates normal augmentation. T/P Trunk is compressible. PTV is compressible. RT PerV is compressible. Nonvascularized structure noted in the right mid thigh muscle. Procedure This is a venous duplex using B-mode, color flow and spectral Doppler. Exam performed portable in ED. A preliminary report was called and/or faxed to Dr. Fernandes. VL/Venous Duplex US, Unilateral Interpretation Summary Deep veins of the right lower extremity are patent and compressible segmentally . There is no evidence of right lower extremity deep vein thrombosis. The right great [place]hen[place] us vein appears patent and compressible segmentally. Nonvascularized structure noted in the right mid thigh muscle. Ordering Physician: Po Fernandes Referring Physician: Marcy Lloyd M.D. Performed By: Clementina Bolton RVT
--- NOTE | 2023-05-02 15:41 | ED.VIS.LOWEX ---
HPI History of Present Illness Chief Complaint: Lower Extremity Injury Detail of Chief Complaint: Atraumatic right leg pain with swelling and now bruising Informant: patient and PCP Occured/Mechanism Comment: Last patient awoke to use the restroom. He developed pain in his right groin on the inside. The next day he noticed swelling of his thigh and leg. This past weekend he said he needed the area to see if he could work out the swelling and pain. He is on Plavix. He is on Plavix because he had 4 stents placed 9 years ago. Onset/Context/Timing Onset: Days Context: Sudden Onset Timing: Continuous Quality of Pain: Dull and Aching Location: Inner right thigh and right leg posteriorly Current Severity: Mild Maximum Severity: Moderate Worsened by: Nothing specific Relieved by: Nothing Associated Symptoms Associated Symptoms: Positive for - (Bruising after deep massage to the right thigh); Negative for Parasthesia, Weakness or Loss of Funtion Narrative Narrative: Patient is a 77-year-old male with history of coronary disease, essential hypertension, hyperlipidemia, hypothyroidism and obesity who was sent to the emergency room for evaluation of DVT right lower extremity. He denies prior history of DVT or PE. He has no risk factors. He denies chest pain, shortness of breath or dyspnea on exertion. He denies black or maroon-colored stool. He denies hematuria. He denies bleeding of his gums. He did does endorse bruising easily. Tetanus Immunization: Unknown Prior similar symptoms: No Recent Illness/Hospitalization: No PFSH PFSH Medical History Arthritis Atherosclerosis of coronary artery of [place] heart without angina pectoris Essential hypertension Fracture of ribs, two History of non-ST elevation myocardial infarction (NSTEMI) (04/05/15) History of perforated ear drum HLD (hyperlipidemia) Hypothyroidism Obesity Recurrent UTI Seasonal allergies Home Medications aspirin 81 mg tablet,delayed release (Adult Low Dose Aspirin) 81 mg PO DAILY 06/28/18 [History Last Taken Unknown] atorvastatin 80 mg tablet 80 mg PO QHS #90 tabs 10/05/22 [Rx Last Taken Unknown] clopidogrel 75 mg tablet 75 mg PO DAILY #90 tabs 10/05/22 [Rx Last Taken Unknown] diphenhydramine 25 mg-acetaminophen 500 mg tablet (Tylenol PM Extra Strength) 2 tab PO QHS PRN 10/05/22 [History Last Taken Unknown] losartan 100 mg tablet 100 mg PO DAILY #90 tabs 10/05/22 [Rx Last Taken Unknown] metoprolol succinate 25 mg tablet,extended release 24 hr 25 mg PO DAILY #90 tabs 10/05/22 [Rx Last Taken Unknown] tamsulosin 0.4 mg capsule 0.4 mg PO DAILY #90 caps 10/05/22 [Rx Last Taken Unknown] levothyroxine 75 mcg tablet 75 mcg PO DAILY Insurance does not cover capsules, only tablets #90 tabs 04/23/23 [Rx Last Taken Unknown] Allergy/AdvReac Type Severity Reaction Status Date / Time Seasonal Allergies: Uncoded Allergy congestion Verified 05/02/23 15:31 Family History Father Asthma Mother Cancer Grandmother Diabetes Grandfather CVA (cerebral vascular accident) Surgical History History of coronary artery stent placement (04/05/15) History of herniorrhaphy 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) Social History Smoking Status: Never smoker alcohol intake: current alcohol intake frequency: a few times a week Alcohol type: wine substance use type: does not use what type of physical activity do you participate in: aerobics and weight training frequency: 3-4 times per week ROS ROS ED Constitutional Constitutional ED: Denies chills, fever(s) or sweats Cardiovascular Cardiovascular: Denies chest pain, palpitations or racing heartbeat Respiratory/Chest Respiratory/Chest: Denies cough, dyspnea or dyspnea on exertion Gastrointestinal Gastrointestinal: Denies nausea or vomiting Genitourinary Genitourinary ED: Denies hematuria Musculoskeletal Musculoskeletal: Reports other Details: Right lower extremity pain and bruising Psychiatric Psychiatric: Denies anxiety or depression Hematologic/Lymphatic Hematologic/Lymphatic: Reports easy bruising EXAM Physical Exam Const Vital Signs: 05/02/23 15:32 Temperature 97.8 F Temperature Source Temporal Pulse Rate 59 L Respiratory Rate 20 H Blood Pressure 181/92 H Blood Pressure Mean 121 Pulse Ox 100 Oxygen Delivery Method Room Air Positive well nourished, well developed and obese General Appearance ED: well developed and NAD Nutritional Appearance: obese HEENT Reports moist mucous membranes normocephalic and atraumatic Eyes PERRL Eyes Narrative: Extra muscles are intact. Sclera is anicteric. Conjunctive is pink. Neck full ROM and supple Chest Wall inspection of chest normal and palpation of chest normal Resp normal respiratory effort, no retractions and clear to auscultation bilaterally Cardio regular rate, regular rhythm, S1 normal heart sound, S2 normal heart sound and no murmurs GI non-tender, non-distended and no masses Back/Spine no CVA tenderness Thoracic Spine / Upper Back: Negative for thoracic spinal tenderness Lumbar Spine / Lower Back: Negative for lumbar spinal tenderness Neuro oriented x3, CN's II-XII intact bilaterally, moves all extremities and no sensory deficits noted Sensorium / Orientation: alert Motor Exam: strength 5/5 throughout Psych mental status grossly normal Skin No no wounds Skin Narrative: Bruising medial right thigh due to deep massage. MDM MDM MDM Narrative Medical decision making narrative: With history of atraumatic right thigh and leg pain and swelling need to evaluate for deep venous thrombosis. Patient's bruising is due to the deep massage and the fact that he is on Plavix. Will obtain venous duplex study. Will obtain CBC to assess H&H and platelet count since his right thigh is significant large and 1 can lose 3 to 4 units of blood with only minimal swelling. History & Record Review Additional record(s) reviewed:: Prior labs (Patient had recent electrolyte panel which was unremarkable. This will not be repeated. Has not had a recent CBC.) Lab Data Attestation: I reviewed the patient's lab results. Lab results narrative: H&H is normal. Platelet count is normal. Labs: Laboratory Results - last 24 hr 05/02/23 16:00 WBC 7.8 RBC 4.24 L Hgb 13.0 Hct 39.9 L MCV 94.1 H MCH 30.7 MCHC 32.6 RDW Std Deviation 42.9 RDW Coeff of Sugar 12.5 Plt Count 216 MPV 8.9 Management Discussion w/another healthcare provider: Program Associate Treatment and Re-Evaluation Narrative: Venous duplex study revealed ruptured muscle with hematoma. There is also subcutaneous blood noted. Spoke with Dr. Warner regarding holding his Plavix. He is to hold it for the next 7 days. 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 Instructions: ED Groin Strain, ED Hematoma Prescriptions: No Action aspirin [Adult Low Dose Aspirin] 81 mg tablet,delayed release (DR/EC) 81 mg PO DAILY diphenhydramine-acetaminophen [Tylenol PM Extra Strength] 25-500 mg tablet 2 tab PO QHS PRN atorvastatin 80 mg tablet 80 mg PO QHS Qty: 90 3RF clopidogrel 75 mg tablet 75 mg PO DAILY Qty: 90 3RF losartan 100 mg tablet 100 mg PO DAILY Qty: 90 3RF metoprolol succinate 25 mg tablet extended release 24 hr 25 mg PO DAILY Qty: 90 3RF tamsulosin 0.4 mg capsule 0.4 mg PO DAILY Qty: 90 3RF levothyroxine 75 mcg tablet 75 mcg PO DAILY Qty: 90 3RF Primary Care Provider: Marcy Lloyd Referrals: Marcy Lloyd MD [Primary Care Provider] - 1 Week Activity Restrictions/Additional Instructions: 1. Do not take your Plavix for the next week. 2. Alternate ice and heat to your right thigh for the next 3 to 5 days Disposition Disposition: Home, Self Care
[2023-05-02 16:23] LABS: Hematocrit 39.9 % (40-54); Mean Corp Hgb Conc 32.6 g/dL (32-36); Mean Corpuscular Hgb 30.7 pg (27.0-32.0); Mean Corpuscular Volume 94.1 fL (80-94); Mean Platelet Vol. 8.9 fl (6.2-12.0); Platelet Count 216 K/mm3 (150-450); RBC Distribution Width CV 12.5 % (11.6-14.6); RBC Distribution Width SD 42.9 fl (35.1-43.9); Red Blood Count 4.24 M/mm3 (4.6-6.2); White Blood Count 7.8 K/mm3 (4.4-11.0)
== END 2023-05-02 16:35 | disposition home or self-care (01) ==
PROVIDERS: Emergency Provider Emergency Medicine; PCP Internal Medicine; Visit Provider Emergency Medicine
DX: S76.011A Strain of muscle, fascia and tendon of right hip, initial encounter (principal); I25.10 Atherosclerotic heart disease of native coronary artery without angina pectoris; Z79.02 Long term (current) use of antithrombotics/antiplatelets; E78.5 Hyperlipidemia, unspecified; M79.89 Other specified soft tissue disorders; E66.9 Obesity, unspecified; I10 Essential (primary) hypertension; Z95.5 Presence of coronary angioplasty implant and graft; X58.XXXA Exposure to other specified factors, initial encounter
CPT/HCPCS: 85027; 93971; 99282

== ENCOUNTER 2023-05-07 10:47 | Emergency (ER) | payer MEDICARE, OTHER, SELFPAY ==
[2023-05-07 10:48] VITALS: BP 144/82; PULSE 53; RESP 16; TEMP 36.6; O2SAT 100; BMI 36.2
--- NOTE | 2023-05-07 11:09 | ED.VIS.LOWEX ---
HPI History of Present Illness HPI Narrative: Left thigh discomfort a.m. bruising and swelling to his left lower leg. Chief Complaint: Lower Extremity Injury Informant: patient Occured/Mechanism Mechanism/Context: Yes injury Onset/Context/Timing Onset: Days Context: Gradual Onset Timing: Continuous Quality of Pain: Dull Current Severity: Mild Maximum Severity: Mild Associated Symptoms Associated Symptoms: Negative for Parasthesia, Weakness or Loss of Funtion Narrative Narrative: 77-year-old male history of CAD, [place], stent, hypertension on Plavix and aspirin. Was seen in the emergency department about 5 days ago. Had discomfort and swelling in his right medial thigh at that time was diagnosed with a ruptured muscle with hematoma on ultrasound. There was no DVT. He was told at that time to hold his Plavix. He denies any injury or trauma said the bruising is gotten a little worse any has some mild swelling in his right lower leg. His physical therapist wanted to have this evaluated. Again he had a ultrasound less than a week ago showing no DVT and a ruptured muscle with a hematoma. Prior similar symptoms: Yes Recent Illness/Hospitalization: No PFSH PFS Medical History Arthritis Atherosclerosis of coronary artery of [place] heart without angina pectoris Essential hypertension Fracture of ribs, two History of non-ST elevation myocardial infarction (NSTEMI) (04/05/15) History of perforated ear drum HLD (hyperlipidemia) Hypothyroidism Obesity Recurrent UTI Seasonal allergies Home Medications aspirin 81 mg tablet,delayed release (Adult Low Dose Aspirin) 81 mg PO DAILY 06/28/18 [History Last Taken Unknown] atorvastatin 80 mg tablet 80 mg PO QHS #90 tabs 10/05/22 [Rx Last Taken Unknown] clopidogrel 75 mg tablet 75 mg PO DAILY #90 tabs 10/05/22 [Rx Last Taken Unknown] diphenhydramine 25 mg-acetaminophen 500 mg tablet (Tylenol PM Extra Strength) 2 tab PO QHS PRN 10/05/22 [History Last Taken Unknown] losartan 100 mg tablet 100 mg PO DAILY #90 tabs 10/05/22 [Rx Last Taken Unknown] metoprolol succinate 25 mg tablet,extended release 24 hr 25 mg PO DAILY #90 tabs 10/05/22 [Rx Last Taken Unknown] tamsulosin 0.4 mg capsule 0.4 mg PO DAILY #90 caps 10/05/22 [Rx Last Taken Unknown] levothyroxine 75 mcg tablet 75 mcg PO DAILY Insurance does not cover capsules, only tablets #90 tabs 04/23/23 [Rx Last Taken Unknown] Allergy/AdvReac Type Severity Reaction Status Date / Time Seasonal Allergies: Uncoded Allergy congestion Verified 05/07/23 10:49 Family History Father Asthma Mother Cancer Grandmother Diabetes Grandfather CVA (cerebral vascular accident) Surgical History History of coronary artery stent placement (04/05/15) History of herniorrhaphy 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 Review of Systems ROS Unobtainable: Denies due to encephalopathy Constitutional Constitutional ED: Denies chills Eyes Eyes: Denies blurry vision ENT ENT ED: Denies ear pain Cardiovascular Cardiovascular: Denies chest pain Respiratory/Chest Respiratory/Chest: Denies cough Gastrointestinal Gastrointestinal: Denies abdominal pain Genitourinary Genitourinary ED: Denies dysuria Musculoskeletal Musculoskeletal: Denies arthralgias Integumentary Denies abscess Neurologic Neurologic: Denies headache(s) Psychiatric Psychiatric: Denies anxiety Endocrine Endocrinology: Denies polydipsia Hematologic/Lymphatic Hematologic/Lymphatic: Denies easy bleeding or easy bruising Allergic/Immunologic Allergic/Immunologic ED: Denies mouth swelling or tongue swelling EXAM Physical Exam Narrative Exam Narrative: Well-appearing 77-year-old male no acute distress. Vital signs stable afebrile. No distress. HEENT exam unremarkable. Lungs are clear. Heart regular rhythm no murmur. Chest wall nontender. Abdomen soft nontender. Moving all 4 extremities. Neurovascularly intact. His right medial thigh and hamstring there is bruising. Small amount of edema. Also on his right medial calf. There is no calf pain or tenderness. Right foot is neurovascular intact. This is consistent with a previously diagnosed torn muscle in his thigh with subcu bleeding and hematoma. Const Vital Signs: 05/07/23 10:48 Temperature 97.9 F Temperature Source Temporal Pulse Rate 53 L Respiratory Rate 16 Blood Pressure 144/82 H Blood Pressure Mean 102 Pulse Ox 100 Oxygen Delivery Method Room Air Positive well nourished and well developed; Negative for obese, cachectic, contractures or unkempt General Appearance ED: well developed and NAD; Negative for unkempt, cachectic or contractures Nutritional Appearance: Negative for cachectic or obese HEENT Reports moist mucous membranes normocephalic and atraumatic; Negative for trauma or tenderness Eyes PERRL General Eye ED: Negative for other Neck full ROM and supple Thyroid: Negative for tender Lymph Lymphatic: Negative for other Chest Wall inspection of chest normal and palpation of chest normal Chest: Negative for other Resp normal respiratory effort, no retractions and clear to auscultation bilaterally Effort and Inspection: Negative for pain with movement Auscultation: Negative for rales, rhonchi or wheezes Cardio regular rate, regular rhythm, S1 normal heart sound, S2 normal heart sound and no murmurs Rate: Negative for bradycardia or tachycardic Rhythm: Negative for abnormal rhythm Bruits: Negative for other GI non-tender, non-distended and no masses Inspection: Negative for abdominal distention Auscultation: normoactive bowel sounds Palpation: soft; Negative for tender, guarding, rebound tenderness present or other Bladder / Kidney Exam: No other Back/Spine no CVA tenderness General Back: Negative for CVA tenderness or swelling Cervical Spine: Negative for cervical spine tenderness Thoracic Spine / Upper Back: Negative for thoracic spinal tenderness Lumbar Spine / Lower Back: Negative for lumbar spinal tenderness Extremity full ROM; Negative for normal to inspection Extremity Narrative: Right thigh bruising. Small edema. Calf nontender. Minimal edema. Right foot neurovascular intact. Normal range of motion. No cellulitis. Normal strength and sensation. No compartment. General Extremety ED: Yes edema; Negative for cyanosis or weight-bearing difficulty General Extremity: edema; Negative for cyanosis or weight-bearing difficulty Neuro oriented x3, CN's II-XII intact bilaterally, moves all extremities and no sensory deficits noted Sensorium / Orientation: alert, oriented to person, oriented to place and oriented to time; Negative for orientation impaired, confused, lethargic or stuporous Motor Exam: strength 5/5 throughout Psych mental status grossly normal Appearance: Negative for unkempt Speech: No other Mood & Affect: Negative for anxious Skin no wounds Lesions: no lesions Rashes: no rashes Trauma: Negative for abrasion, laceration or puncture MDM MDM MDM Narrative Medical decision making narrative: Patient previously seen a week ago diagnosed with a ruptured muscle in his right thigh with subcu bruising and hematoma. Basically is seen today. There was no DVT seen prior. He does not need a repeat ultrasound. His Plavix has already been holding him and having to hold his aspirin. No heavy exercise with his legs. No excessive walking. Ice and elevate. Follow-up as needed. I did explain to him this will take weeks to resolve. He also had a prior CBC that was unremarkable. History & Record Review Discussion w/independent historian: Patient Additional record(s) reviewed:: Prior inpatient record, Prior outpatient record, Prior ED visit and Prior labs Discharge Plan Triage Chief Complaint: Lower Extremity Injury ED Provider: Zach Peterson Dx/Rx/DC Orders Clinical Impression: Subcutaneous hematoma, Torn muscle Instructions: ED Hematoma Prescriptions: No Action aspirin [Adult Low Dose Aspirin] 81 mg tablet,delayed release (DR/EC) 81 mg PO DAILY diphenhydramine-acetaminophen [Tylenol PM Extra Strength] 25-500 mg tablet 2 tab PO QHS PRN atorvastatin 80 mg tablet 80 mg PO QHS Qty: 90 3RF clopidogrel 75 mg tablet 75 mg PO DAILY Qty: 90 3RF losartan 100 mg tablet 100 mg PO DAILY Qty: 90 3RF metoprolol succinate 25 mg tablet extended release 24 hr 25 mg PO DAILY Qty: 90 3RF tamsulosin 0.4 mg capsule 0.4 mg PO DAILY Qty: 90 3RF levothyroxine 75 mcg tablet 75 mcg PO DAILY Qty: 90 3RF Primary Care Provider: Marcy Lloyd Referrals: Marcy Lloyd MD [Primary Care Provider] - As Needed Activity Restrictions/Additional Instructions: This is bruising and bleeding in your right thigh and leg from a torn muscle that was seen on the prior ultrasound. You did not have a DVT at that time. Continue to hold your Plavix. Hold your aspirin for the next week. Ice and elevate your leg to decrease bruising and swelling. No heavy leg exercise and limited walking until the bruising starts to get better. If getting worse follow-up with your doctor. Disposition Disposition: Home, Self Care
== END 2023-05-07 11:34 | disposition home or self-care (01) ==
LOC: ED 11:26
PROVIDERS: Emergency Provider Emergency Medicine; PCP Internal Medicine; Visit Provider Emergency Medicine
DX: S70.11XA Contusion of right thigh, initial encounter (principal); S76.911A Strain of unspecified muscles, fascia and tendons at thigh level, right thigh, initial encounter; I25.10 Atherosclerotic heart disease of native coronary artery without angina pectoris; I25.2 Old myocardial infarction; Z95.5 Presence of coronary angioplasty implant and graft; Z79.01 Long term (current) use of anticoagulants; Z79.82 Long term (current) use of aspirin; X58.XXXA Exposure to other specified factors, initial encounter
CPT/HCPCS: 99282

== ENCOUNTER → 2023-08-02 | Outpatient (CLI) | payer MEDICARE, OTHER, SELFPAY | END | disposition home or self-care (01) | LOC: LAB 16:21 | PROVIDERS: PCP Internal Medicine; Referring Provider Urology; Visit Provider Urology | DX: R31.9 Hematuria, unspecified (principal) | CPT/HCPCS: 87077; 87086; 87088; 87186 ==

== ENCOUNTER → 2023-08-27 | Outpatient (CLI) | payer MEDICARE, OTHER, SELFPAY ==
--- NOTE | 2023-08-27 15:52 | CT_ITS ---
STUDY: CT ABDOMEN AND PELVIS WITHOUT CONTRAST REASON FOR EXAM: Male, 78 years old. ACUTE CYSTITIS W/ HEMATURIA RADIATION DOSAGE (If Supplied By Facility): CTDIvol = ( 19.06 ) mGy, DLP = ( 1004.99 ) mGycm TECHNIQUE: Transaxial images were obtained from the dome of the diaphragm to the symphysis pubis without oral contrast, and without intravenous contrast. Sagittal and coronal images were reconstructed. Individualized dose optimization techniques were used for this CT. COMPARISON: None. FINDINGS: The visualized lung bases are unremarkable. The visualized portions of the heart are within normal limits. Normal liver. Normal gallbladder and extrahepatic biliary system. Normal spleen. Normal pancreas. Normal bilateral adrenal glands. 4.6 cm cyst of the right kidney. Cysts up to 11.4 cm in the left kidney. Small hiatal hernia. Normal small intestine. Mild diverticulosis of the colon. The appendix is visualized and appears normal. Normal abdominal aorta. Normal inferior vena cava. Normal retroperitoneum. Normal urinary bladder. The prostate is 5 x 5.5 cm. Probable 1.3 cm right iliac node. Normal abdominal wall. Old right rib fractures. CT/Abdomen/Pelvis without Cont IMPRESSION: Small hiatal hernia. Mild colonic diverticulosis. Bilateral bilateral w renal cysts. Slightly enlarged prostate. Slightly prominent right iliac node. Electronically Signed: Akash Mcknight DO at 16:30 EDT ,
== END | disposition home or self-care (01) ==
PROVIDERS: PCP Internal Medicine; Referring Provider Urology; Visit Provider Urology
DX: N30.01 Acute cystitis with hematuria (principal); R30.0 Dysuria
CPT/HCPCS: 74176; 87077; 87086; 87088; 87186

== ENCOUNTER → 2023-10-05 | Outpatient (CLI) | payer MEDICARE, OTHER, SELFPAY ==
--- NOTE | 2023-10-05 06:03 | ECHOCS_ITS ---
Version 2 Reason For Study: Preop Procedure This was a 2D Doppler, Color Flow transthoracic echocardiogram. Contrast injection was performed. Exam performed in department. Left Ventricle Normal LV size. Left ventricular systolic function is normal. The estimated ejection fraction is 60 %. No regional wall motion abnormalities noted. Right Ventricle Normal RV size. Normal systolic function. Atria Normal left atrium. Normal right atrium. Mitral Valve Normal mitral valve. Tricuspid Valve The tricuspid valve is not well visualized. Aortic Valve Trisinus/trileaflet aortic valve. Pulmonic Valve Normal pulmonic valve. Great Vessels Normal aortic root. The pulmonary is not well visualized. Normal inferior vena cava. Pericardium/Pleural No pericardial effusion. Medication Diluted definity 3ml given slow IV push to enhance endocardial definition. MMode/2D Measurements & Calculations LVIDd: 3.6 cm IVSd: 0.94 cm Ao root diam: 3.2 cm LVIDs: 2.0 cm LVPWd: 1.00 cm RVDd: 3.2 cm FS: 42.8 % LAV(MOD-bp): 28.6 ml LVAd ap4: 30.3 cm2 SV(MOD-sp4): 62.6 ml LAV(MOD-bp) Indexed: 14.3 ml/m2 LVLd ap4: 8.0 cm LAV(MOD-sp2): 28.3 ml EDV(MOD-sp4): 93.1 ml LAV(MOD-sp4): 28.1 ml EDV(sp4-el): 97.2 ml LVAs ap4: 15.5 cm2 LVLs ap4: 6.7 cm ESV(MOD-sp4): 30.5 ml ESV(sp4-el): 30.5 ml EF(MOD-sp4): 67.2 % EF(sp4-el): 68.6 % SV(sp4-el): 66.6 ml LA A4 area: 13.1 cm2 LA dimension(2D): 3.4 cm RA A4 area: 11.6 cm2 TAPSE: 2.3 cm Time Measurements MV dec time: 0.27 sec Doppler Measurements & Calculations MV E max elieser: 83.0 cm/sec Lat Peak E' Elieser: 9.5 cm/sec Med Peak E' Elieser: 8.5 cm/sec MV A max elieser: 111.8 cm/sec E/E' lat: 8.7 E/E' med: 9.8 MV E/A: 0.74 MV dec slope: 306.1 cm/sec2 Ao V2 max: 144.5 cm/sec LV V1 max: 137.1 cm/sec Ao max P.3 mmHg LV V1 max P.5 mmHg Ao V2 mean: 93.8 cm/sec LV V1 mean P.9 mmHg Ao mean P.1 mmHg LV V1 mean: 93.6 cm/sec Ao V2 VTI: 32.5 cm LV V1 VTI: 29.6 cm AV (velocity ratio): 0.91 PA V2 max: 98.1 cm/sec PI end-d elieser: 94.6 cm/sec TR max elieser: 246.5 cm/sec TR max P.3 mmHg ECHO/Echo Complete W/ Contrast Interpretation Summary Normal LV size. Left ventricular systolic function is normal. The estimated ejection fraction is 60 %. Contrast injection was performed. Ordering Physician: George Stephens Referring Physician: Marcy Lloyd Performed By: Paulina Lafleur, JOSE, RVT
[2023-10-05 10:55] LABS: Absolute Lymphocyte Count 1.86 X10^3/uL (0.83-4.51); Basophil# 0.04 X10^3/uL; Basophil% 0.6 % (0-1); Eosinophil# 0.11 X10^3/uL; Eosinophils% 1.7 % (0-5); Hematocrit 45.2 % (40-54); Hemoglobin 14.7 g/dL (13.0-16.5); Lymphocyte # 1.86 X10^3/ul (0.83-4.51); Lymphocyte % 28.4 % (19-41); Mean Corp Hgb Conc 32.5 g/dL (32-36); Mean Corpuscular Hgb 30.2 pg (27.0-32.0); Mean Platelet Vol. 9.1 fl (6.2-12.0); Monocyte# 0.52 X10^3/uL; Monocyte% 7.9 % (0-10); NRBC Flagged by Analyzer 0 % (0-5); Neutrophil # 4.01 X10^3/uL (2.7-7.7); Neutrophil % 61.1 % (47-70); Platelet Count 182 K/mm3 (150-450); RBC Distribution Width CV 13.5 % (11.6-14.6); RBC Distribution Width SD 46.5 fl (35.1-43.9); Red Blood Count 4.86 M/mm3 (4.6-6.2); White Blood Count 6.6 K/mm3 (4.4-11.0)
[2023-10-05 11:14] LABS: BNP,B-Type NATRIURETIC PEPTIDE 27.5 pg/mL (0-100)
[2023-10-05 11:32] LABS: AST(SGOT) 26 U/L (15-37); Alanine Aminotransfer ALT/SGPT 31 U/L (16-61); Albumin, Serum 3.7 g/dL (3.2-5.0); Alkaline Phosphatase 68 U/L (45-117); Anion Gap 5 (5-15); BUN 24 mg/dL (7-18); Bilirubin, Direct 0.16 mg/dL (0.00-0.30); Calcium,Total 8.7 mg/dL (8.5-10.1); Chloride 108 mmol/L (98-107); Cholesterol 148 mg/dL (200); EST Glomerular Filtration Rate 48 mL/min (>60); Est Glom Filt Rate - Afr Amer 58 mL/min (>60); Free T3 2.1 pg/mL (2.18-3.98); Globulin 2.9 g/dL (2.2-4.2); Glucose 94 mg/dL (74-106); High Density Lipoprotein 62 mg/dL; Protein, Total 6.6 g/dL (6.4-8.2); Sodium Level 140 mmol/L (136-145); T4 Free Direct 1.18 ng/dL (0.76-1.46); Thyroid Stim Hormone (TSH) 2.11 uIU/mL (0.358-3.74); Triglycerides 145 mg/dL; Very Low Density Lipoprotein 29 mg/dL (5-40)
--- NOTE | 2023-10-05 15:59 | STRESSREP_ITS ---
Stress Test Report Exercise myocardial perfusion stress test. 78-year-old man with a history of coronary artery disease status post PCI of the right coronary artery and the diagonal vessel. Stress protocol: Resting EKG demonstrates sinus bradycardia with a rate of 53 bpm resting blood pressure is 128/70 mmHg. The patient exercised according to the regular Alexis protocol for a total duration of 6 minutes attaining a maximum heart rate of 123 bpm which was 86% of maximum predicted heart rate; the maximum workload was 7 metabolic equivalents. At rest there were no ST or T wave changes noted to suggest ischemia and at peak exercise upsloping ST changes only were noted which did not meet the criteria for ischemia. No clinical angina was noted but the pa tient did develop significant shortness of breath with audible wheezing. The peak blood pressure was 170/70 mmHg. Rate-pressure product was 18,200. Myocardial perfusion protocol. 14.3 mCi of technetium 99m sestamibi was injected at rest. The patient exercised according to regular Alexis protocol for total duration of 6 minutes and at peak exercise 44.2 mCi of technetium 99m sestamibi was injected stress images were obtained stress and rest images were reconstructed in comparing the short axis vertical long and horizontal long axis. Gated images were also obtained. Perfusion SPECT analysis: Review of the stress images demonstrate normal uptake of tracer noted in all areas of the myocardium. The resting images similarly demonstrate normal uptake of tracer noted in all areas of the myocardium. No areas of reversibility are noted to suggest ischemia no previous infarct was noted. Gated SPECT analysis: The gated ejection fraction is 72%. Conclusion: Normal exercise myocardial perfusion stress test at a moderate workload Preserved ejection. Compared to the previous test from 2 years ago the exercise capacity is markedly reduced with exertional shortness of breath.
== END | disposition home or self-care (01) ==
PROVIDERS: PCP Internal Medicine; Referring Provider Internal Medicine Cardiovascular Disease; Visit Provider Internal Medicine Cardiovascular Disease
DX: Z01.810 Encounter for preprocedural cardiovascular examination (principal); E03.9 Hypothyroidism, unspecified; I25.10 Atherosclerotic heart disease of native coronary artery without angina pectoris; R06.09 Other forms of dyspnea
CPT/HCPCS: 78452; 80048; 80061; 80076; 83880; 84439; 84443; 84481; 85025; 93017; 93306; A9500; Q9957; A4216; C8929

== ENCOUNTER 2023-11-12 07:25 | Day surgery (SDC) | payer MEDICARE, OTHER, SELFPAY ==
--- NOTE | 2023-11-08 08:30 | PCM.HP.BLA ---
History and Physical Date of Admission: 11/12/23 URSZULA SALINAS, is a 78 M who presents for a cardiac catheterization. He is a gentleman with a history of coronary artery disease status post Angio plasty and stenting with a drug-eluting stent to the diagonal vessel. The circumflex artery no significant disease, the right coronary artery had a 95% stenosis and also had a drug-eluting stent placed. He has had no neck arm or jaw discomfort suggest angina no dizziness or diaphoresis no near syncope or syncope. He recently successfully underwent left shoulder replacement in August 2022 and this was uneventful. He has been compliant with all his medications. He did have an echocardiogram in May 2021 demonstrating mild concentric left ventricular hypertrophy , estimated ejection fraction of 65%, stage I diastolic dysfunction, and no wall motion abnormalities present. He also had a stress test in September 2021 where he exercised to a high metabolic workload of 10.1 metabolic equivalents. He recently returned from a trip to [place]. He thinks his exercise tolerance has been stable but I suspect that its been a little reduced. 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) Family History Father AsthmaMother CancerGrandmother DiabetesGrandfather CVA (cerebral vascular accident) Social History Smoking Status: Never smoker alcohol intake: current alcohol intake frequency: a few times a week Alcohol type: wine substance use type: does not use what type of physical activity do you participate in: aerobics and weight training frequency: 3-4 times per week ROS Const Const: Negative for fatigue, weakness, headache(s), daytime sleepiness or difficulty sleeping Eyes Eyes: Negative for change in vision ENT ENT: Negative for headache(s), dizziness or Nosebleed/epistaxis Cardio Chest Pain: No Palpitations: No Edema: None Resp Respiratory: Negative for SOB with activity, SOB at rest, SOB orthopnea\SOB lying down or Cough GI GI: Negative nausea, vomiting or heartburn Neuro Neuro: Negative for dizziness, lightheadedness, near syncope, headache(s) or weakness Endo Endo: Negative for fatigue Cardiology Exam Const Appearance: cooperative, healthy appearing, no acute distress, well developed and well groomed Nutritional Appearance: average body habitus and well nourished Orientation: alert, awake and oriented x3 Head Head: normal to inspection, normocephalic and atraumatic Ears: hearing grossly normal bilaterally and external ears normal Nose: external nose normal, nares normal, nasal mucous membranes and turbinates normal, septum normal and no nasal discharge Face and Sinus: face symmetric Mouth: oral mucosae normal, tongue normal, oropharynx normal and moist mucous membranes Teeth and gingiva: dentition normal Throat: posterior oropharynx normal, tonsils normal and uvula midline Eyes General: appearance normal, both eyes and all related structures Eyelids: eyelids normal Conjunctivae: conjunctivae normal Pupils: PERRL, normal by confrontation and accommodation normal EOM: EOM intact bilaterally Neck Neck: normal visual inspection, trachea midline and no JVD JVD: +5 Carotids: normal carotid upstroke and bounding pulses Chest Chest inspection: normal inspection of the chest, symmetric chest movement and normal respiratory effort Auscultation: Bilateral: Clear to Auscultation Cardio Palpation: normal PMI Rate: regular rate Rhythm: regular rhythm Heart sounds: S1 normal, S2 normal and normal, physiologic split S2; Negative rub, gallop or murmur GI GI: normal to inspection, soft, no hepatosplenomegaly and bowel sounds present Neuro General: patient alert, patient awake, patient oriented x3, gait normal, moves all extremities and no focal sensory deficit Skin Skin: no rashes or lesions noted Extremities Pulses: Normal: Right Femoral Pulse, Left Femoral Pulse, Right Dorsalis Pedis Pulse, Left Dorsalis Pedis Pulse, Right Posterior Tibial Pulse, Left Posterior Tibial Pulse, Right Radial Pulse and Left Radial Pulse Lower Extremity Edema: None: Bilateral Musculoskel Musculoskeletal: No joint tenderness Psych Psychological: normal affect Supplemental Info Supplemental Information ECHOCARDIOGRAM 05/03/2021 Interpretation Summary Normal left ventricle. Left ventricular systolic function is normal. The estimated ejection fraction is 65 %. Stage 1 diastolic dysfunction. Mild concentric left ventricular hypertrophy. Contrast injection was performed. Exercise myocardial perfusion stress test 10/03/21 Perfusion SPECT analysis: Review of the stress images demonstrate normal uptake of tracer noted in all areas of the myocardium. There is mild diaphragmatic and GI attenuation artifact noted. The resting images demonstrate a similar pattern with mild diaphragmatic and GI attenuation artifact. No areas of reversibility are noted to suggest ischemia no previous infarct is noted. Conclusion: Normal exercise myocardial perfusion stress test at a high workload. Good functional capacity. No ischemia or angina noted. Stress test 10/05/2023: Exercise myocardial perfusion stress test. 78-year-old man with a history of coronary artery disease status post PCI of the right coronary artery and the diagonal vessel. Stress protocol: Resting EKG demonstrates sinus bradycardia with a rate of 53 bpm resting blood pressure is 128/70 mmHg. The patient exercised according to the regular Alexis protocol for a total duration of 6 minutes attaining a maximum heart rate of 123 bpm which was 86% of maximum predicted heart rate; the maximum workload was 7 metabolic equivalents. At rest there were no ST or T wave changes noted to suggest ischemia and at peak exercise upsloping ST changes only were noted which did not meet the criteria for ischemia. No clinical angina was noted but the patient did develop significant shortness of breath with audible wheezing. The peak blood pressure was 170/70 mmHg. Rate-pressure product was 18,200. Myocardial perfusion protocol. 14.3 mCi of technetium 99m sestamibi was injected at rest. The patient exercised according to regular Alexis protocol for total duration of 6 minutes and at peak exercise 44.2 mCi of technetium 99m sestamibi was injected stress images were obtained stress and rest images were reconstructed in comparing the short axis vertical long and horizontal long axis. Gated images were also obtained. Perfusion SPECT analysis: Review of the stress images demonstrate normal uptake of tracer noted in all areas of the myocardium. The resting images similarly demonstrate normal uptake of tracer noted in all areas of the myocardium. No areas of reversibility are noted to suggest ischemia no previous infarct was noted. Gated SPECT analysis: The gated ejection fraction is 72%. Conclusion: Normal exercise myocardial perfusion stress test at a moderate workload Preserved ejection. Compared to the previous test from 2 years ago the exercise capacity is markedly reduced with exertional shortness of breath. Assessment and Plan Assessment and Plan (1) History of coronary artery stent placement: Status: Resolved Comment: PCI-FRANCESCA-D1 w/ 2.5 x 15 mm and 2.5 x 8 mm Xience Alpine Stent, [id number] RCA w/ 2.5 x 18 mm Xience Alpine Stent and Mid RCA w/ 3.0 x 18 mm Xience BETH Rico Ostium RPDA 04/05/2015 Plan: He does have a history of coronary artery disease status post angioplasty and stent placement. During his stress test in October of 2023 his exercise capacity was markedly reduced with exertional shortness of breath compared to his previous stress test. Will proceed with a cardiac catheterization to further assess this. Depending on results, further recommendations will be made.
--- NOTE | 2023-11-08 08:45 | RAD_ITS ---
STUDY: X-RAY CHEST REASON FOR EXAM: Male, 78 years old. Preoperative evaluation. TECHNIQUE: Frontal and lateral views of the chest. COMPARISON: April 05, 2015 FINDINGS: Stable low volume inspiration. There is no demonstrated pleural abnormality. Cardiomegaly with aortic tortuosity and calcification unchanged. Normal mediastinum and evans. Normal visualized pulmonary arteries. Normal visualized thoracic spine. Reversal total shoulder arthroplasty on the left. There is no demonstrated abnormality of the visualized soft tissue structures of the upper abdomen. RAD/Chest PA and Lateral IMPRESSION: No active or acute cardiopulmonary disease. Electronically Signed: Arsen Anders MD at 11:51 EST ,
[2023-11-08 10:22] LABS: Absolute Lymphocyte Count 2.37 X10^3/uL (0.83-4.51); Basophil# 0.03 X10^3/uL; Basophil% 0.5 % (0-1); Eosinophil# 0.17 X10^3/uL; Eosinophils% 2.9 % (0-5); Hematocrit 45.3 % (40-54); Hemoglobin 14.7 g/dL (13.0-16.5); Lymphocyte # 2.37 X10^3/ul (0.83-4.51); Lymphocyte % 39.8 % (19-41); Mean Corp Hgb Conc 32.5 g/dL (32-36); Mean Corpuscular Hgb 30.6 pg (27.0-32.0); Mean Corpuscular Volume 94.2 fL (80-94); Mean Platelet Vol. 9.1 fl (6.2-12.0); Monocyte% 6.7 % (0-10); NRBC Flagged by Analyzer 0 % (0-5); Neutrophil # 2.97 X10^3/uL (2.7-7.7); Neutrophil % 49.9 % (47-70); Platelet Count 199 K/mm3 (150-450); RBC Distribution Width CV 13.8 % (11.6-14.6); RBC Distribution Width SD 47.6 fl (35.1-43.9); Red Blood Count 4.81 M/mm3 (4.6-6.2)
[2023-11-08 10:39] LABS: Anion Gap 6 (5-15); BUN 23 mg/dL (7-18); BUN/Creat Ratio 15.6 RATIO (10-20); Calcium,Total 8.4 mg/dL (8.5-10.1); Chloride 111 mmol/L (98-107); Creatinine, Serum 1.47 mg/dL (0.70-1.30); EST Glomerular Filtration Rate 49 mL/min (>60); Est Glom Filt Rate - Afr Amer 60 mL/min (>60); Glucose 111 mg/dL (74-106); Potassium 3.7 mmol/L (3.5-5.1); Sodium Level 143 mmol/L (136-145)
--- OUTSIDE RECORDS SUMMARY | 2023-11-12 07:28 | XMS RPT_ITS | CCD ---
Author Name Unknown Address [address] [place] [address] Organization [facility] Care Team Providers Care Community Service Aide Name Role Phone Cheyenne Kaye Unavailable Cheyenne Kaye Unavailable Cheyenne Kaye Unavailable Troy BARAJAS, Andrew Mendieta Unavailable Unknown, Referring Provider Unavailable Unav ailable Allergies Allergy Classification Reported Allergen(s) Allergy Type Date of Onset Reaction(s) Facility (3 sources) MOLD AND DUST; Translations: [MOLD AND DUST] allergy to substance 5 Nasal congestion [facility] Work Phone: (3 sources) NO KNOWN DRUG ALLERGIES drug allergy 5 [facility] Work Phone: (1 source) House dust mite; Translations: [DUST MITES] allergy to substance 0 [facility] Work Phone: (1 source) Mold Extract; Translations: [MOLD] Drug Allergy 0 [facility] Work Phone: (1 source) PLANT POLLENS; Translations: [PLANT POLLENS] allergy to substance 0 hay fever [facility] Work Phone: Medications Completed/Discontinued Medications Medication Drug Class(es) Dates Sig (Normalized) Sig (Original) acetaminophen 500 mg / diphenhydrAMINE hydrochloride 25 mg oral tablet (3 sources) Histamine-1 Receptor Antagonist Start: 07-06-2020 TYLENOL PM EXTRA STRENGTH 500-25 MG TABS 1 tablet daily DIPHENHYDRAMINE-A PAP (SLEEP) [id number] Wendy Roro LAUNDRY ROUTEMAN Problems Active Problems Problem Classification Problem Date Documented Da te Episodic/Chronic Coronary atherosclerosis and other heart disease (3 sources) Coronary atherosclerosis; Translations: [Atherosclerotic heart disease of [place] coronary artery without angina pectoris] Onset: 07-15-2015 07-15-2015 Chronic Disorders of lipid metabolism (3 sources) Hyperlipidemia; Translations: [Hyperlipidemia, unspecified] Onset: 04-19-2015 04-19-2015 Chronic Osteoarthritis (1 source) Primary osteoarthritis, left shoulder; Translations: [Primary osteoarthritis, left shoulder] Onset: 07-14-2020 07-14-2020 Chronic Other non-traumatic joint disorders (3 sources) Shoulder pain; Translations: [Pain in joint, shoulder region] Episodic Unclassified (2 sources) Long-term drug therapy; Translations: [Other penitentiary (current) drug therapy] Onset: 07-15-2015 07-15-2015 Past or Other Problems Problem Classification Problem Date Documented Da te Episodic/Chronic Coronary atherosclerosis and other heart disease (5 sources) Presence of coronary angioplasty implant and graft; Translations: [History of myocardial infarction] Onset: 04-19-2015 07-15-2015 Episodic Nonspecific chest pain (6 sources) Chest pain; Translations: [Chest pain, unspecified] Onset: 04-19-2015 Resolved: 07-15-2015 07-15-2015 Episodic Other aftercare (1 source) Other senior software manager (current) drug therapy; Translations: [Other senior software manager (current) drug therapy] Onset: 07-15-2015 07-15-2015 Episodic Other circulatory disease (1 source) History of myocardial infarction; Translations: [Old myocardial infarction] Onset: 04-19-2015 04-19-2015 Episodic Unclassified (3 sources) Percutaneous transluminal coronary angioplasty ; Translations: [Coronary angioplasty status] Onset: 04-19-2015 04-19-2015 Unclassified (1 source) Problem Results Test Name Value Interpretation Reference Range Facil ity Vital Signs Date Time Vital Sign Value Performing Clinician Facility 09-20-2017 10:25-0500 BMI (Body Mass Index) 33.35 kg/m2 Cheyenne Kaye [facility] Work Phone: 09-20-2017 10:25-0500 BP Diastolic 60 mm[Hg] [facility] Work Phone: 09-20-2017 10:25-0500 BP Systolic 120 mm[Hg] [facility] Work Phone: 09-20-2017 10:25-0500 Height 162.56 cm [facility] Work Phone: 09-20-2017 10:25-0500 Pulse (Heart Rate) 60 /min [facility] Work Phone: 09-20-2017 10:25-0500 Respiratory Rate 20 /min [facility] Work Phone: 09-20-2017 10:25-0500 Weight 88.13 kg [facility] Work Phone: 03-01-2017 09:58-0400 BMI (Body Mass Index) 33.23 kg/m2 [facility] Work Phone: 03-01-2017 09:58-0400 BP Diastolic 60 mm[Hg] [facility] Work Phone: 03-01-2017 09:58-0400 BP Systolic 120 mm[Hg] [facility] Work Phone: 03-01-2017 09:58-0400 Height 162.56 cm [facility] Work Phone: 03-01-2017 09:58-0400 Pulse (Heart Rate) 84 /min [facility] Work Phone: 03-01-2017 09:58-0400 Respiratory Rate 20 /min [facility] Work Phone: 03-01-2017 09:58-0400 Weight 87.82 kg [facility] Work Phone: 08-08-2016 09:37-0400 BSA (Body Surface Area) 1.9 m2 [facility] Work Phone: NEGATED: Highlighted [id number] 09:50-0400 BMI (Body Mass Index) 34.11 kg/m2 Rosa [address]ela Lane LAUNDRY ROUTEMAN [facility] Work Phone: NEGATED: Highlighted [id number] 09:50-0400 Body weight 89.[address] LAUNDRY ROUTEMAN [facility] Work Phone: NEGATED: Highlighted [id number] 09:50-0400 Body weight [address] LAUNDRY ROUTEMAN [facility] Work Phone: NEGATED: Highlighted [id number] 09:50-0400 Height 162[address] LAUNDRY ROUTEMAN [facility] Work Phone: NEGATED: Highlighted [id number] 09:50-0400 Height [address] LAUNDRY ROUTEMAN [facility] Work Phone: Encounters Encounter Date Encounter Type Care Provider Facility Start: 04-24-2022 Chart Update Referring Prov ider Unknown [id number]-Tyltfn [facility] Work Phone: Start: 04-04-2022 Office outpatient ne w 45 minutes Referring Provider Unknown KJ-Bavymdbisanp-Aaeudw 210 Work Phone: Start: 04-04-2022 Patient encounter procedure Referring Provider Unknown IK-Vmwdeqahhojq-[address] [place] [address] DO Work Phone: Start: 07-14-2020 End: 07-14-2020 Patient encounter procedure Andrew Simmons MD Work Phone: [facility] Work Phone: Procedures Date Procedure Procedure Detail Performing Clinician Start: 07-14-2020 End: 07-14-2020 Arthrocentesis aspir&/inj major jt/bursa w/o us Andrew Simmons MD Work Phone: Start: 07-14-2020 End: 07-14-2020 Blood pressure screening not performed - reason not given Andrew Simmons MD Work Phone: Start: 07-14-2020 End: 07-14-2020 BMI outside of normal parameters - no follow-up plan/reason not given Andrew Simmons MD Work Phone: Start: 07-14-2020 End: 07-14-2020 Documentation of current medications Andrew Simmons MD Work Phone: Start: 07-14-2020 End: 07-14-2020 Injection - triamcinolone acetonide 10 mg Andrew Simmons MD Work Phone: Start: 07-14-2020 End: 07-14-2020 Osteoarthritis assess Andrew Simmons MD Work Phone: Start: 07-14-2020 End: 07-14-2020 Pain assessment documented as negative - follow-up not required Andrew Simmons MD Work Phone: Start: 07-14-2020 End: 07-14-2020 Radex shoulder complete minimum 2 views Andrew Simmons MD Work Phone: Start: 07-14-2020 End: 07-14-2020 Tobacco non-user Andrew Simmons MD Work Phone: Start: 09-20-2017 End: 09-20-2017 LATHA Stephens MD Start: 09-20-2017 End: 09-20-2017 Follow Up Appt 6 months Aslhey Harmon Start: 03-01-2017 End: 09-20-2017 LATHA Stephens MD Start: 03-01-2017 End: 09-20-2017 Follow Up Appt 6 months Ashley Harmon Start: 08-08-2016 End: 08-08-2016 LATHA Stephens MD Start: 08-08-2016 End: 08-08-2016 Follow Up Appt 6 months Ashley Harmon Start: 08-08-2016 End: 08-08-2016 TOWN ADMINISTRATOR George Stephens MD Start: 08-08-2016 End: 08-08-2016 Follow Up Appt 6 months Ashley Harmon Start: 08-05-2016 End: 08-09-2016 *Hepatic Function Panel Ashley Harmon Start: 08-05-2016 End: 08-09-2016 Lipid 1996 panel - Serum or Plasma George Stephens MD Start: 08-05-2016 End: 08-09-2016 *Hepatic Function Panel Ashley Harmon Start: 08-05-2016 End: 08-09-2016 Lipid panel [AGGREGATE] Ashley Harmon Start: 02-17-2016 End: 02-21-2016 *CBC with Differential George Stephens MD Start: 02-17-2016 End: 02-23-2016 *Hepatic Function Panel Ashley Harmon Start: 02-17-2016 End: 02-17-2016 LATHA Stephens MD Start: 02-17-2016 End: 02-17-2016 Follow Up Appt 6 months Ashley Harmon Start: 02-17-2016 End: 02-23-2016 Lipid 1996 panel - Serum or Plasma George Stephens MD Start: 02-17-2016 End: 02-21-2016 *CBC with Differential George Stephens MD Start: 02-17-2016 End: 02-23-2016 *Hepatic Function Panel Ashley Harmon Start: 02-17-2016 End: 02-17-2016 LATHA Stephens MD Start: 02-17-2016 End: 02-17-2016 Follow Up Appt 6 months Ashley Harmon Start: 02-17-2016 End: 02-23-2016 Lipid panel [AGGREGATE] Ashley Harmon Start: 07-21-2015 End: 07-21-2015 LATHA Stephens MD Start: 07-21-2015 End: 07-22-2015 Documentation of current medications George Stephens MD Start: 07-21-2015 End: 07-21-2015 Follow Up Appt 6 months Ashley Harmon Start: 07-21-2015 End: 02-23-2016 Lipid 1996 panel - Serum or Plasma George Stephens MD Start: 07-21-2015 End: 07-21-2015 LATHA Stephens MD Start: 07-21-2015 End: 07-22-2015 Documentation of current medications George Stephens MD Start: 07-21-2015 End: 07-21-2015 Follow Up Appt 6 months Ashley Harmon Start: 07-21-2015 End: 02-23-2016 Lipid panel [AGGREGATE] Ashley Harmon Start: 04-20-2015 End: 02-21-2016 *Hepatic Function Panel Ashley Harmon Start: 04-20-2015 End: 04-20-2015 LATHA Stephens MD Start: 04-20-2015 End: 04-21-2015 Documentation of current medications George Stephens MD Start: 04-20-2015 End: 02-23-2016 Ecg routine ecg w/least 12 lds w/i&r George Stephens MD Start: 04-20-2015 End: 04-20-2015 Follow Up Appt 3 months Ashley Harmon Start: 04-20-2015 End: 02-21-2016 Lipid 1996 panel - Serum or Plasma George Stephens MD Start: 04-20-2015 End: 02-21-2016 *Hepatic Function Panel Ashley Harmon Start: 04-20-2015 End: 04-20-2015 LATHA Stephens MD Start: 04-20-2015 End: 04-21-2015 Documentation of current medications George Stephens MD Start: 04-20-2015 End: 02-23-2016 Electrocardiogram, complete George Stephens MD Start: 04-20-2015 End: 04-20-2015 Follow Up Appt 3 months Ashley Harmon Start: 04-20-2015 End: 02-21-2016 Lipid panel [AGGREGATE] Ashley Harmon NEGATED: Highlighted rowStart: 07-14-2020 End: 07-14-2020 Documentation of current medications Rosa Isela Lane LPN Plan of Treatment Date Care Activity Detail Author Start: 07-14-2020 End: 07-14-2020 Appointment Appointment [facility] Work Phone: Start: 03-26-2018 End: 03-26-2018 Appointment Appointment [facility] Work Phone: Start: 09-20-2017 End: 09-20-2017 *Hepatic Function Panel *Hepatic Function Panel [facility] Work Phone: Start: 09-20-2017 End: 09-20-2017 TOWN ADMINISTRATOR TOWN ADMINISTRATOR [facility] Work Phone: Start: 09-20-2017 End: 09-20-2017 Follow Up Appt 6 months Follow Up Appt 6 months [facility] Work Phone: Start: 09-20-2017 End: 09-20-2017 Lipid panel [AGGREGATE] *Lipid Profile CC PCP [facility] Work Phone: Start: 09-20-2017 End: 09-20-2017 Appointment Appointment [facility] Work Phone: Start: 09-20-2017 End: 09-20-2017 Appointment Appointment [facility] Work Phone: Start: 03-01-2017 End: 03-01-2017 *Hepatic Function Panel *Hepatic Function Panel [facility] Work Phone: Start: 03-01-2017 End: 09-20-2017 TOWN ADMINISTRATOR TOWN ADMINISTRATOR [facility] Work Phone: Start: 03-01-2017 End: 09-20-2017 Follow Up Appt 6 months Follow Up Appt 6 months [facility] Work Phone: Start: 03-01-2017 End: 03-01-2017 Lipid panel [AGGREGATE] *Lipid Profile CC PCP [facility] Work Phone: Start: 03-01-2017 End: 03-01-2017 *Hepatic Function Panel *Hepatic Function Panel [facility] Work Phone: Start: 03-01-2017 End: 03-01-2017 TOWN ADMINISTRATOR TOWN ADMINISTRATOR [facility] Work Phone: Start: 03-01-2017 End: 03-01-2017 Follow Up Appt 6 months Follow Up Appt 6 months [facility] Work Phone: Start: 03-01-2017 End: 03-01-2017 Lipid panel [AGGREGATE] *Lipid Profile CC PCP [facility] Work Phone: Start: 02-07-2017 End: 08-09-2016 *Hepatic Function Panel *Hepatic Function Panel [facility] Work Phone: Start: 02-07-2017 End: 08-09-2016 Lipid panel [AGGREGATE] *Lipid Profile CC PCP [facility] Work Phone: Start: 02-07-2017 End: 08-09-2016 *Hepatic Function Panel *Hepatic Function Panel [facility] Work Phone: Start: 02-07-2017 End: 08-09-2016 Lipid panel [AGGREGATE] *Lipid Profile CC PCP [facility] Work Phone: Start: 08-08-2016 End: 08-08-2016 TOWN ADMINISTRATOR TOWN ADMINISTRATOR [facility] Work Phone: Start: 08-08-2016 End: 08-08-2016 Follow Up Appt 6 months Follow Up Appt 6 months [facility] Work Phone: Start: 08-08-2016 End: 08-08-2016 TOWN ADMINISTRATOR TOWN ADMINISTRATOR [facility] Work Phone: Start: 08-08-2016 End: 08-08-2016 Follow Up Appt 6 months Follow Up Appt 6 months [facility] Work Phone: Start: 08-05-2016 End: 08-09-2016 *Hepatic Function Panel *Hepatic Function Panel [facility] Work Phone: Start: 08-05-2016 End: 08-09-2016 Lipid panel [AGGREGATE] *Lipid Profile CC PCP [facility] Work Phone: Start: 08-05-2016 End: 08-09-2016 *Hepatic Function Panel *Hepatic Function Panel [facility] Work Phone: Start: 08-05-2016 End: 08-09-2016 Lipid panel [AGGREGATE] *Lipid Profile CC PCP [facility] Work Phone: Start: 02-17-2016 End: 02-21-2016 *CBC with Differential *CBC with Differential [facility] Work Phone: Start: 02-17-2016 End: 02-23-2016 *Hepatic Function Panel *Hepatic Function Panel [facility] Work Phone: Start: 02-17-2016 End: 02-17-2016 TOWN ADMINISTRATOR TOWN ADMINISTRATOR [facility] Work Phone: Start: 02-17-2016 End: 02-17-2016 Follow Up Appt 6 months Follow Up Appt 6 months [facility] Work Phone: Start: 02-17-2016 End: 02-23-2016 Lipid panel [AGGREGATE] *Lipid Profile CC PCP [facility] Work Phone: Start: 02-17-2016 End: 02-21-2016 *CBC with Differential *CBC with Differential [facility] Work Phone: Start: 02-17-2016 End: 02-23-2016 *Hepatic Function Panel *Hepatic Function Panel [facility] Work Phone: Start: 02-17-2016 End: 02-17-2016 TOWN ADMINISTRATOR TOWN ADMINISTRATOR [facility] Work Phone: Start: 02-17-2016 End: 02-17-2016 Follow Up Appt 6 months Follow Up Appt 6 months [facility] Work Phone: Start: 02-17-2016 End: 02-23-2016 Lipid panel [AGGREGATE] *Lipid Profile CC PCP [facility] Work Phone: Start: 07-21-2015 End: 07-21-2015 TOWN ADMINISTRATOR TOWN ADMINISTRATOR [facility] Work Phone: Start: 07-21-2015 End: 07-21-2015 Follow Up Appt 6 months Follow Up Appt 6 months [facility] Work Phone: Start: 07-21-2015 End: 02-23-2016 Lipid panel [AGGREGATE] *Lipid Profile CC PCP [facility] Work Phone: Start: 07-21-2015 End: 07-21-2015 TOWN ADMINISTRATOR TOWN ADMINISTRATOR [facility] Work Phone: Start: 07-21-2015 End: 07-21-2015 Follow Up Appt 6 months Follow Up Appt 6 months [facility] Work Phone: Start: 07-21-2015 End: 02-23-2016 Lipid panel [AGGREGATE] *Lipid Profile CC PCP [facility] Work Phone: Start: 04-20-2015 End: 02-21-2016 *Hepatic Function Panel *Hepatic Function Panel [facility] Work Phone: Start: 04-20-2015 End: 04-20-2015 TOWN ADMINISTRATOR TOWN ADMINISTRATOR [facility] Work Phone: Start: 04-20-2015 End: 02-23-2016 Ecg routine ecg w/least 12 lds w/i&r EKG (In office) [facility] Work Phone: Start: 04-20-2015 End: 04-20-2015 Follow Up Appt 3 months Follow Up Appt 3 months [facility] Work Phone: Start: 04-20-2015 End: 02-21-2016 Lipid panel [AGGREGATE] *Lipid Profile CC PCP [facility] Work Phone: Start: 04-20-2015 End: 02-21-2016 *Hepatic Function Panel *Hepatic Function Panel [facility] Work Phone: Start: 04-20-2015 End: 04-20-2015 TOWN ADMINISTRATOR TOWN ADMINISTRATOR [facility] Work Phone: Start: 04-20-2015 End: 02-23-2016 Electrocardiogram, complete EKG (In office) [facility] Work Phone: Start: 04-20-2015 End: 04-20-2015 Follow Up Appt 3 months Follow Up Appt 3 months [facility] Work Phone: Start: 04-20-2015 End: 02-21-2016 Lipid panel [AGGREGATE] *Lipid Profile CC PCP [facility] Work Phone: Patient Education HYPERLIPIDEMIA , CHOLESTEROL%20AND%20YOU R%20HEALTH [facility] Work Phone: Payers Date Payer Category Payer Policy ID Unknown Social History Date Type Detail Facility Start: 07-14-2020 End: 07-14-2020 Assertion Unknown if ever smoked [facility] Work Phone: History of Present illness Narrative Note Date & Type Note Facility History of Present illness Narrative URSZULA SALINAS is a 76 year old male presenting today for evaluation of their bilateral shoulders. He explains that he is having constant shoulder pain and has been for several months. He is now waking up from sleep secondary to the severity of his pain,Past medical history, surgical history, social history, and family history were all reviewed and are as per the blue patient health history questionnaire form that I signed and scanned into the chart today. [facility] DO Work Phone: History of Present illness Narrative Note Date & Type Note Facility History of Present illness Narrative URSZULA SALINAS is a 76 year old male presenting today for evaluation of their bilateral shoulders. He explains that he is having constant shoulder pain and has been for several months. He is now waking up from sleep secondary to the severity of his pain,Past medical history, surgical history, social history, and family history were all reviewed and are as per the blue patient health history questionnaire form that I signed and scanned into the chart today. [facility]-Fzrohplqhyrb-[facility] Work Phone: Chief Complaint Chief Complaint Description Start Date left shoulder pain Preliminary chief co mplaint data, not yet signed by the author as of Instructions Instruction Description Start Date Completed Advance Directives There may be information available, but it has not been provided by the sender. No Advanced Directives Records FoundNo Advanced Directives Records Found Assessments There may be information available, but it has not been provided by the sender. Review of System There may be information available, but it has not been provided by the sender. Family History There may be information available, but it has not been provided by the sender.No Family History Records FoundNo Family History Records Found History of Present Illness There may be information available, but it has not been provided by the sender. Summary Purpose Additional Source Comments Reason for Visit (unrecogniz ed section and content) (unrecognized sect ion and content) No Status Records FoundNo Status Records Found INFORMATION SOURCE (unrecogn ized section and content) DATE CREATED AUTHOR AUTHOR'S ORGANIZ ATION 04/08/2022 [facility] FOR RECORDS PERTAINING TO PATIENTS WHO ARE OR HAVE BEEN ENROLLED IN A CHEMICAL DEPENDENCY/SUBSTANCEABUSE PROGRAM, SOME INFORMATION MAY BE OMITTED. This clinical summary was aggregated from multiple sources. Caution should be exercised in using it in the provision of clinical care. This summary normalizes information from multiple sources, and as a consequence, information in this document may materially change the coding, format and clinical context of patient data. In addition, data may be omitted in some cases. CLINICAL DECISIONS SHOULD BE BASED ON THE PRIMARY CLINICAL RECORDS. [facility] [employer], [facility]. provides no warranty or guarantee of the accuracy or completeness of information in this document.
[2023-11-12 07:42] VITALS: BMI 36.0
--- NOTE | 2023-11-12 09:48 | CL.D_ITS ---
Patient Name: URSZULA SALINAS Study Date: 11/12/2023 Performing: George Stephens MD Ht: 64 inches 162.56 cm : 1945 Wt: 209.99 lbs 95.25 kg Age: 78 Gender: male BSA: 2 PROCEDURE(S) PERFORMED [id number]-([id number])LHC/COR/LV CLINICAL PROFILE AND INDICATIONS Indications: Suspected CAD Heart Failure: None Stress/Imaging Date: 10/10/23Stress Test with SPECT MPI: Negative CAD Presentations: Symptom unlikely to be ischemic. CONCLUSIONS Previously stented diagonal vessel and right coronary artery which are noted to be patent, LAD with mild diffuse disease, ramus intermedius which is a small vessel with moderately severe disease and diffuse disease noted in the circumflex artery. RECOMMENDATIONS Aggressive medical therapy. Consider weight loss and or GLP-1 therapy. DESCRIPTION OF PROCEDURE The patient arrived to the procedure lab. The risks and benefits of the procedure as well as a full description of our services here and current unavailability of surgical backup were fully explained to the patient and/or their significant other prior to the catheterization. The Timeout was completed, verifying the correct patient and procedure. The patient's procedural site was prepped and draped in the usual fashion. Local anesthetic was given subcutaneously to right radial region with Lidocaine 2%. Using a modified Seldinger technique, arterial access was obtained via the right radial artery, a 6Fr sheath was inserted. Left Coronary Artery selective angiography was performed in multiple views using a 5 Fr. 4.0 Cottonwood catheter. Right Coronary Artery selective angiography was then performed in multiple views using a 5 Fr. 4.0 Cotton[place] catheter. Left Ventriculography was performed in MCDONNELL projection using a 5 Fr. Pigtail catheter. LV to AO pullback pressures were then recorded.The arterial sheath was pulled and a TR Band was applied for hemostasis CORONARY ANGIOGRAPHY DOMINANCE: Co- Dominant LEFT HEART ASSESSMENT Left Ventricular Ejection Fraction: by LV Gram 65 % Normal LV wall motion Normal Left Ventricular systolic function LEFT MAIN: Angiographically normal LEFT ANTERIOR DESCENDING ARTERY: Mild luminal irregularities less than 30% DIAGONAL 1: Proximal - Previously placed stent is patent CIRCUMFLEX ARTERY: First obtuse marginal branch which bifurcates with 50% stenosis noted in the superior and 50 to 60% stenosis noted in the inferior branch with mild luminal irregularities noted in the AV groove and the second obtuse marginal branch and mild disease noted in the posterolateral vessel. RAMUS: Proximal 70% stenosis in the small vessel RIGHT CORONARY ARTERY: Previously placed stent has an instent 30 % restenosis DISTAL RCA: Mild luminal irregularities less than 30% COMPLICATIONS No Complications PROCEDURE MEDICATIONS Fentanyl 50 mcg IV Versed 1 mg IV Versed 1 mg IV Oxygen: 2 L/min via nasal cannula Heparin given IA 11/12/2023 09:09:15 Verapamil 2.5mg, Ntg 100mcgs, 3000 units of Heparin given IA 11/12/2023 09:09:15 IV Fluids: .9 NaCl IV started @ 100 ml/hr 11/12/2023 07:55:17 SUMMARY OF HEMODYNAMIC DATA Time AIR REST ECG 07:47:45 Art 112/63 (88) 09:11:22 AO 121/75 (95) SA 09:13:34 AO 120/80 (98) 09:14:37 LV 128/13, 20 09:22:02 LV 114/16, 25 09:22:08 LV 100/15, 25 09:23:18 LVp 112/14, 27 09:23:34 AOp 121/69 (92) 09:23:39 ECG 09:39:33 AIR REST 09:47:44 Signed By George Stephens MD On 11/12/2023 10:34:19 Signed By George Stephens MD On 11/12/2023 09:47:31 George Stephens MD
== END 2023-11-12 11:30 | disposition home or self-care (01) ==
LOC: CLSP 07:26
PROVIDERS: Nurse Practitioner Family; PCP Internal Medicine; Referring Provider Internal Medicine Cardiovascular Disease; Visit Provider Internal Medicine Cardiovascular Disease
DX: I25.10 Atherosclerotic heart disease of native coronary artery without angina pectoris (principal); E78.5 Hyperlipidemia, unspecified; Z95.5 Presence of coronary angioplasty implant and graft; I10 Essential (primary) hypertension
CPT/HCPCS: 36415; 71046; 80048; 85025; 93458; 99152; 99153; J7040; C1769; C1894; Q9967

== ENCOUNTER → 2024-03-21 | Outpatient (CLI) | payer MEDICARE, OTHER, SELFPAY ==
--- NOTE | 2024-03-21 08:06 | CT_ITS ---
STUDY: CT ABDOMEN AND PELVIS WITH AND WITHOUT CONTRAST REASON FOR EXAM: Male, 78 years old. One-week history of gross hematuria. Hypertension. RADIATION DOSAGE (If Supplied By Facility): CTDIvol = ( 23.75 ) mGy, DLP = ( 3211.59 ) mGycm TECHNIQUE: Transaxial images were obtained from the dome of the diaphragm to the symphysis pubis without oral contrast. [id number] 100ML was administered. Sagittal and coronal images were reconstructed. Individualized dose optimization techniques were used for this CT. COMPARISON: Comparison is made with prior study August 27, 2023. FINDINGS: The visualized lung bases are unremarkable. Coronary artery calcification. There is decreased attenuation of the liver consistent with steatosis. 4 mm cyst is seen in the anterior aspect of the right lobe of the liver along its dome as well as a 1 cm cyst along its posterior aspect. Normal gallbladder and extrahepatic biliary system. Normal spleen. Normal pancreas. Normal bilateral adrenal glands. There is a 4.1 cm x 4.2 cm cyst in the medial lower pole of the right kidney. There is a 10.5 cm x 9 cm cyst in the upper midportion of the left kidney. There is also evidence of a 2, 2.5 cm cyst in the lower pole of the left kidney. Normal visualized stomach. Normal small intestine. There are scattered colonic diverticula consistent with diverticulosis. The appendix is visualized and appears normal. There is scattered atherosclerotic calcification of the abdominal aorta, without a demonstrated aneurysm. Normal inferior vena cava. Normal retroperitoneum. The bladder is contracted. Mild degree of the bladder wall thickening. There is heterogeneous enlargement of the prostate with indentation of the bladder base. Calcifications are seen with the prostate. The prostate measures 5 cm x 4.8 cm. Minimal anterior listhesis of L4 on L5. Evidence of prior right inguinal hernia repair. There are degenerative changes of the visualized lumbar spine. Old right rib fractures. CT/CT Abd/Pelvis W/WO Contrast IMPRESSION: Multiple bilateral renal cysts more prominent on the left side. Heterogeneous enlargement of the prostate with calcifications and indentation at the bladder base. Electronically Signed: Taras Galeana MD at 11:08 EDT ,
[2024-03-21 08:39] LABS: CREATININE FINGERSTICK 1.6 mg/dL (0.70-1.30)
== END | disposition home or self-care (01) ==
PROVIDERS: PCP Internal Medicine; Referring Provider Urology; Visit Provider Urology
DX: R31.0 Gross hematuria (principal)
CPT/HCPCS: 74178; Q9967; A4216

== ENCOUNTER → 2024-03-24 | Outpatient (CLI) | payer MEDICARE, OTHER, SELFPAY ==
[2024-03-24 10:20] LABS: AST(SGOT) 21 U/L (15-37); Alanine Aminotransfer ALT/SGPT 25 U/L (16-61); Albumin, Serum 3.6 g/dL (3.2-5.0); Alkaline Phosphatase 65 U/L (45-117); Cholesterol 127 mg/dL (200); Globulin 2.6 g/dL (2.2-4.2); High Density Lipoprotein 44 mg/dL; PSA,Total- Diagnostic 2.22 ng/mL (0.0-4.0); Protein, Total 6.2 g/dL (6.4-8.2); Triglycerides 207 mg/dL; Very Low Density Lipoprotein 41 mg/dL (5-40)
[2024-03-24 12:30] LABS: Hemoglobin A1c 5.3 % (3.8-5.6)
== END | disposition home or self-care (01) ==
LOC: LAB 08:15
PROVIDERS: Internal Medicine Cardiovascular Disease; PCP Internal Medicine; Referring Provider Urology; Visit Provider Urology
DX: R31.0 Gross hematuria (principal); I25.10 Atherosclerotic heart disease of native coronary artery without angina pectoris; E78.5 Hyperlipidemia, unspecified; Z95.5 Presence of coronary angioplasty implant and graft; R73.09 Other abnormal glucose
CPT/HCPCS: 36415; 80061; 80076; 83036; 84153

== ENCOUNTER → 2024-04-01 | Outpatient (CLI) | payer MEDICARE, OTHER, SELFPAY ==
--- NOTE | 2024-04-01 | CYSPIN_PTH ---
PATIENT: URSZULA SALINAS [facility] U#:[id number] AGE/SX: 78/M ROOM: RE04/01/[address]: Dr. Mekhi Amador MD : 1945 BED: DIS: 04/01/2024 SPEC #: [id number] RECD: 04/02/24 09:22 STATUS: OUSMANE JOSE #: [id number] CAR: 04/01/24 00:[address]: Mekhi Amador DEPT: CYTOLOGY RECD BY: Amberly Chapman ENTERED: 04/02/24 09:22 SP TYPE: CYSPIN FL OTHR DR: Dr. Marcy Lloyd MD Tissues: Urine Procedures: Pap Stain (control) Special Stain Group II Cytospin Fluid HEADER OPERATION: Not noted PRE-OP DIAGNOSIS: Gross hematuria TISSUE SUBMITTED: Urine for cytology DIAGNOSIS CYTOLOGY Urine for cytology (cytospin and cellblock): Non-diagnostic (Arely Category I). See comment. ROSALINA/ 04/02/2024 COMMENT The specimen is acellular . Clinical correlation is suggested. The Arely System for urine cytology diagnostic categorization was used in the evaluation of this case. CYTOLOGY STUDY Slides are reviewed. CYTOLOGY GROSS Received is 50 ml of yellow cloudy fluid labeled with the patient's name and and designated per the requisition as urine. Submitted for cytology preparation. Mr 04/02/24 TC:5 CPT: 55320
[2024-04-01 17:54] LABS: Cytology, Body Fluid / CSF SEE PATHOLOGY REPORT
== END | disposition home or self-care (01) ==
PROVIDERS: PCP Internal Medicine; Visit Provider Urology
DX: R31.0 Gross hematuria (principal)
CPT/HCPCS: 88108; 88313

== ENCOUNTER → 2024-10-11 | Outpatient (CLI) | payer MEDICARE, OTHER, SELFPAY ==
[2024-10-11 09:11] LABS: AST(SGOT) 21 U/L (15-37); Alanine Aminotransfer ALT/SGPT 29 U/L (16-61); Albumin, Serum 3.7 g/dL (3.2-5.0); Alkaline Phosphatase 78 U/L (45-117); Bilirubin, Direct 0.15 mg/dL (0.00-0.30); Cholesterol 157 mg/dL (200); Globulin 2.7 g/dL (2.2-4.2); High Density Lipoprotein 58 mg/dL; Protein, Total 6.4 g/dL (6.4-8.2); Triglycerides 174 mg/dL; Very Low Density Lipoprotein 35 mg/dL (5-40)
== END | disposition home or self-care (01) ==
LOC: LAB 07:56
PROVIDERS: Nurse Practitioner Gerontology; PCP Internal Medicine; Referring Provider Internal Medicine Cardiovascular Disease; Visit Provider Internal Medicine Cardiovascular Disease
DX: I25.10 Atherosclerotic heart disease of native coronary artery without angina pectoris (principal); I10 Essential (primary) hypertension; E78.00 Pure hypercholesterolemia, unspecified
CPT/HCPCS: 36415; 80061; 80076

== ENCOUNTER → 2024-10-13 | Outpatient (CLI) | payer MEDICARE, OTHER, SELFPAY ==
[2024-10-13 13:07] LABS: PSA,Total- Diagnostic 2.33 ng/mL (0.0-4.0)
== END | disposition home or self-care (01) ==
LOC: POLAB3 12:29
PROVIDERS: PCP Internal Medicine; Visit Provider Urology
DX: R97.20 Elevated prostate specific antigen [PSA] (principal)
CPT/HCPCS: 84153

== ENCOUNTER → 2025-03-23 | Outpatient (CLI) | payer MEDICARE, OTHER, SELFPAY ==
[2025-03-23 08:42] LABS: Absolute Lymphocyte Count 2.63 X10^3/uL (0.83-4.51); Absolute Neutrophil Count 2.5 X10^3/uL (2.0-7.7); Basophil# 0.04 X10^3/uL; Basophil% 0.7 % (0-1); Eosinophil# 0.18 X10^3/uL; Hematocrit 44.9 % (40-54); Lymphocyte # 2.63 X10^3/ul (0.83-4.51); Lymphocyte % 43.5 % (19-41); Mean Corp Hgb Conc 33.4 g/dL (32-36); Mean Corpuscular Hgb 31.9 pg (27.0-32.0); Mean Corpuscular Volume 95.5 fL (80-94); Mean Platelet Vol. 8.9 fl (6.2-12.0); Monocyte# 0.63 X10^3/uL; Monocyte% 10.4 % (0-10); NRBC Flagged by Analyzer 0 % (0-5); Neutrophil # 2.54 X10^3/uL (2.7-7.7); Neutrophil % 42.1 % (47-70); Platelet Count 183 K/mm3 (150-450); RBC Distribution Width CV 13.3 % (11.6-14.6); RBC Distribution Width SD 47.3 fl (35.1-43.9)
[2025-03-23 09:29] LABS: Hemoglobin A1c 5.5 % (<=5.6)
[2025-03-23 09:39] LABS: AST(SGOT) 26 U/L (<=37); Alanine Aminotransfer ALT/SGPT 20 U/L (<=46); Albumin, Serum 4.2 g/dL (3.4-4.8); Alkaline Phosphatase 73 U/L (40-129); Anion Gap 10 (5-15); BUN 26 mg/dL (4-19); BUN/Creat Ratio 17.9 RATIO (10-20); Calcium,Total 9.3 mg/dL (7.6-11.0); Chloride 106 mmol/L (98-108); Cholesterol 169 mg/dL (<=200); Creatinine, Serum 1.45 mg/dL (0.70-1.20); EST Glomerular Filtration Rate 49 (>60); Globulin 2.2 g/dL (2.2-4.2); Glucose 111 mg/dL (70-99); High Density Lipoprotein 62 mg/dL; Low Density Lipoprotein Calc. 80 mg/dL; Potassium 4.2 mmol/L (3.3-5.1); Protein, Total 6.4 g/dL (5.9-8.4); Sodium Level 140 mmol/L (133-145); Total Bilirubin 0.61 mg/dL (0.00-1.30); Triglycerides 139 mg/dL; Very Low Density Lipoprotein 28 mg/dL (5-40); Vitamin B12 226 pg/mL (180-914); Vitamin D,25 Hydroxy 22.2 ng/mL (30-100); cholesterol:hdl ratio screen 2.74
== END | disposition home or self-care (01) ==
LOC: LAB 08:10
PROVIDERS: PCP Internal Medicine; Referring Provider Internal Medicine; Visit Provider Internal Medicine
DX: N40.1 Benign prostatic hyperplasia with lower urinary tract symptoms (principal); R97.20 Elevated prostate specific antigen [PSA]; R73.9 Hyperglycemia, unspecified; I25.10 Atherosclerotic heart disease of native coronary artery without angina pectoris; E03.9 Hypothyroidism, unspecified; I10 Essential (primary) hypertension; E78.5 Hyperlipidemia, unspecified; E55.9 Vitamin D deficiency, unspecified; Z95.5 Presence of coronary angioplasty implant and graft
CPT/HCPCS: 36415; 80053; 80061; 82306; 82607; 83036; 83735; 84153; 84439; 84443; 84481; 85025